=== PATIENT | female | born 1955 | race Caucasian/White ===

== ENCOUNTER 2016-05-06 10:14 | Day surgery (SDC) | payer OTHER ==
[~2016-05-06] VITALS: Ht 170.2 cm; Wt 71.4 kg
[2016-05-06] VITALS (13 sets, daily range): BP systolic 134–170; BP diastolic 66–81; PULSE 81–100; RESP 16–24; TEMP 96.9–98; O2SAT 96–100; Ht 170.2 cm; Wt 71.4 kg
[~2016-05-06 10:14] MED LIST: ASPI-1115 PO; CYCL-375 PO; HYDR-3995 PO; OMEP40CA52 PO; POLY17PO6 PO; PRAV40TA3 PO; TRAM50TA53 PO
--- OUTSIDE RECORDS SUMMARY | 2016-05-06 10:21 | XMS REPORT | Referral Summary ---
Author Author [facility], Family Medicine Organization [facility] Address Unknown Phone Unavailable Care Team Providers Care Forestry Patrolman Name Role Phone Koby Adame Primary Care Physician [phone] Encounter VC Date(s): 07/01/14 - 07/01/14 [facility], [address] [place] [id number] Discharge Diagnosis: Chronic back pain Discharge Diagnosis: Chronic pain syndrome Discharge Diagnosis: High cholesterol Discharge Disposition: 01-Home or Self Care Attending Physician: Salvatore Adame MD Admitting Physician: Salvatore Adame MD Vital Signs Most recent to 1 oldest [Reference Range]: Temperature Tympanic 36.0 degC [36.6-38.1 degC] *LOW* (07/01/14 4:15 PM) Peripheral Pulse 64 bpm Rate [60-100 bpm] (07/01/14 4:15 PM) Blood Pressure 132/88 mmHg [90-140/60-90 mmHg] (07/01/14 4:15 PM) Problem List Condition Effective Dates Status Health Status Informant Acute hepatitis C < 09/23/13 Resolved without mention of hepatic coma(Confirmed) Absence of Active menstruation(Confirm ed) Asthma(Confirmed) Active Chronic back Active pain(Confirmed) Other chronic Active pain(Confirmed) Chronic pain Active syndrome (disorder)(Confirmed ) Depression(Confirmed Active ) GERD Active (gastroesophageal reflux disease)(Confirmed) High Active cholesterol(Confirme d) Internal hemorrhoids 04/13/07 Active with other complication(Confirm ed) IBS (irritable bowel Active syndrome)(Confirmed) Migraine Active headache(Confirmed) Osteoarthritis(Confi Active rmed) Unspecified vitamin Active D deficiency(Confirmed ) Allergies, Adverse Reactions, Alerts Substance Reaction Severity Status codeine RASH Active Medications multivitamin Daily, TAKE ONE DAILY, 0 Refill(s) Start Date: 09/23/13 Status: Ordered Turner 10 mg-325 mg oral tablet 0.5-1 tabs, Oral, TID, as needed for pain, # 90 tabs, 0 Refill(s) Start Date: 11/26/14 Status: Ordered pravastatin 40 mg oral tablet 1 tabs, Oral, Daily, # 30 tabs, 6 Refill(s), Pharmacy: [facility] #[id number] , 1 tabs Oral Daily Start Date: 02/27/14 Status: Ordered PriLOSEC 40 mg oral delayed release capsule 40 mg 1 caps, Oral, Daily, # 30 caps, 6 Refill(s), Pharmacy: [facility] # [id number], 1 caps Oral Daily Start Date: 09/25/14 Status: Ordered Vitamin D3 1000 intl units oral tablet 1 tabs, Oral, Daily, # 30 tabs, 0 Refill(s) Start Date: 09/23/13 Status: Ordered Results No data available for this section Immunizations Vaccine Date Refusal Reason tetanus/diphth/pertuss (Tdap) adult/adol 02/16/05 hepatitis A-hepatitis B vaccine 11/22/11 influenza virus vaccine, inactivated1 12/03/13 influenza virus vaccine, live 02/08/13 influenza virus vaccine, live 11/24/11 pneumococcal 23-polyvalent vaccine 11/24/11 pneumococcal 23-polyvalent vaccine 12/04/03 pneumococcal 23-polyvalent vaccine 12/12/01 pneumococcal 23-polyvalent vaccine 12/17/99 tetanus-diphth toxoids (Td) adult/adol 09/28/95 1Result Comment: [12/03/2013] SEE SCANNED NOTE Procedures Procedure Date Related Diagnosis Body Site Colonoscopic polypectomy1 02/24/14 Esophagogastroduodenoscopy and biopsy2, 3 02/24/14 Removal of breast implants 07/23/07 Colonoscopy 04/13/07 BCC REMOVAL-NOSE 2002 Breast augmentation 1996 1Tubular adenoma 1, hyperplastic polyp 1 first-degree relative with colon cancer, repeat in 5 years 2Biopsies negative for Barfield's. His GERD refractory to medication return to clinic for further evaluation. 38-10 cm hiatal hernia, irregular GE junction. Social History Social History Type Response Smoking Status Former smoker; Type: Cigarettes1 1Quit spring 2013 Assessment and Plan Extracted from: Title: Chronic pain, cholesterol Author: Salvatore Adame MD Date: Assessment/Plan Chronic back pain Chronic pain syndrome High cholesterol Orders: Chronic pain related to chronic back pain. Overall doing well on current regimen and we will continue this. Follow-up again in 3 months to reevaluate back pain. We discussed smoking cessation and she will be starting Chantix soon. Hyperlipidemia under good control, continue pravastatin.
--- OUTSIDE RECORDS SUMMARY | 2016-05-06 10:21 | XMS REPORT | Referral Summary ---
Author Author [facility], Family Medicine Organization [facility] Address Unknown Phone Unavailable Care Team Providers Care Optical Store Manager Name Role Phone Koby Adame Primary Care Physician [phone] Encounter VC Date(s): 12/30/14 - 12/30/14 [facility], [address] [place] [id number] Discharge Diagnosis: Chronic pain syndrome Discharge Disposition: 01-Home or Self Care Attending Physician: Salvatore Adame MD Admitting Physician: Salvatore Adame MD Vital Signs Most recent to 1 oldest [Reference Range]: Peripheral Pulse 78 bpm Rate [60-100 bpm] (12/30/14 4:33 PM) Blood Pressure 138/88 mmHg [90-140/60-90 mmHg] (12/30/14 4:33 PM) Problem List Condition Effective Dates Status [...] Reaction Severity Status codeine RASH Active Medications cyclobenzaprine 10 mg oral tablet See Instructions, as needed for spasm, take 1-2 tabs at nighttime, # 30 tabs, 0 Refill(s), [id number], take 1-2 tabs at nighttime,PRN: as needed for spasm Start Date: 12/25/14 Stop Date: 12/25/15 Status: Ordered multivitamin Daily, TAKE ONE DAILY, 0 Refill(s) Start Date: 09/23/13 Status: Ordered [place] 10 mg-325 mg oral tablet 0.5-1 tabs, Oral, TID, as needed for pain, # 90 tabs, 0 Refill(s) Start Date: 12/25/14 Status: Ordered pravastatin 40 mg oral tablet See Instructions, TAKE ONE TABLET BY MOUTH DAILY, # 30 tabs, 5 Refill(s), eRx: [facility] #[id number], TAKE ONE TABLET BY MOUTH DAILY Start Date: 12/22/14 Status: Ordered PriLOSEC 40 mg oral delayed release capsule 40 mg 1 caps, Oral, Daily, # 30 caps, 6 Refill(s), Pharmacy: [facility] # [id number], 1 caps Oral Daily Start Date: 09/25/14 Status: Ordered Vitamin D3 1000 intl units oral tablet 1 tabs, Oral, Daily, # 30 tabs, 0 Refill(s) Start Date: 09/23/13 Status: Ordered Results No data available for this section Immunizations Vaccine Date Refusal Reason tetanus/diphth/pertuss (Tdap) adult/adol 02/16/05 hepatitis A-hepatitis B vaccine 11/22/11 influenza virus vaccine, inactivated 12/30/14 influenza virus vaccine, inactivated1 12/03/13 influenza virus [...] 2013 Assessment and Plan Extracted from: Title: Ambulatory Patient Education Author: Salvatore Adame MD Date: Family Medicine Chronic Pain Chronic pain can be defined as pain that is off and on and lasts for 36 months or longer. Many things cause chronic pain, which can make it difficult to make a diagnosis. There are many treatment options available for chronic pain. However, finding a treatment that works well for you may require trying various approaches until the right one is found. Many people benefit from a combination of two or more types of treatment to control their pain. SYMPTOMS Chronic pain can occur anywhere in the body and can range from mild to very severe. Some types of chronic pain include: Headache. Low back pain. Cancer pain. Arthritis pain. Neurogenic pain. This is pain resulting from damage to nerves. People with chronic pain may also have other symptoms such as: Depression. Anger. Insomnia. Anxiety. DIAGNOSIS Your health care provider will help diagnose your condition over time. In many cases, the initial focus will be on excluding possible conditions that could be causing the pain. Depending on your symptoms, your health care provider may order tests to diagnose your condition. Some of these tests may include: Blood tests. CT scan. MRI. X-rays. Ultrasounds. Nerve conduction studies. You may need to see a specialist. TREATMENT Finding treatment that works well may take time. You may be referred to a pain specialist. He or she may prescribe medicine or therapies, such as: Mindful meditation or yoga. Shots (injections) of numbing or pain-relieving medicines into the spine or area of pain. Local electrical stimulation. Acupuncture. Massage therapy. Aroma, color, light, or sound therapy. Biofeedback. Working with a physical therapist to keep from getting stiff. Regular, gentle exercise. Cognitive or behavioral therapy. Group support. Sometimes, surgery may be recommended. HOME CARE INSTRUCTIONS Take all medicines as directed by your health care provider. Lessen stress in your life by relaxing and doing things such as listening to calming music. Exercise or be active as directed by your health care provider. Eat a healthy diet and include things such as vegetables, fruits, fish, and lean meats in your diet. Keep all follow-up appointments with your health care provider. Attend a support group with others suffering from chronic pain. SEEK MEDICAL CARE IF: Your pain gets worse. You develop a new pain that was not there before. You cannot tolerate medicines given to you by your health care provider. You have new symptoms since your last visit with your health care provider. SEEK IMMEDIATE MEDICAL CARE IF: You feel weak. You have decreased sensation or numbness. You lose control of bowel or bladder function. Your pain suddenly gets much worse. You develop shaking. You develop chills. You develop confusion. You develop chest pain. You develop shortness of breath. MAKE SURE YOU: Understand these instructions. Will watch your condition. Will get help right away if you are not doing well or get worse. Document Released: 10/22/2002 Document Revised: 10/02/2013 Document Reviewed: [facility] Patient Information 2015 [employer]. This information is not intended to replace advice given to you by your health care provider. Make sure you discuss any questions you have with your health care provider. No follow up information was provided. Extracted from: Title: Office Visit Note Author: Salvatore Adame MD Date: 12/30/14 Assessment/Plan Chronic pain syndrome Need for influenza vaccination Continue present care. Follow-up or preoperative visit as already planned, otherwise when necessary.
--- OUTSIDE RECORDS SUMMARY | 2016-05-06 10:21 | XMS REPORT | Referral Summary ---
Author Organization Unknown Address Unknown Phone Unavailable Care Team Providers Care Wind Turbine Performance Engineer Name Role Phone KvngkingKoby Primary Care Physician [phone] Encounter VC Date(s): 05/28/14 - 05/28/14 [facility], [place], Family [address] [place] [id number] Discharge Diagnosis: Back muscle spasm Discharge Disposition: Home or Self Care Attending Physician: Marta Albarado APRN Admitting Physician: Marta Albarado APRN Vital Signs Most recent to 1 oldest [Reference Range]: Temperature Tympanic 36.3 degC [36.6-38.1 degC] *LOW* (05/28/14 10:17 AM) Peripheral Pulse 78 bpm Rate [60-100 bpm] (05/28/14 10:17 AM) Blood Pressure 120/76 mmHg [90-140/60-90 mmHg] (05/28/14 10:17 AM) Problem List Condition Effective Dates Status Health [...] Active Medications cyclobenzaprine 10 mg oral tablet 1 tabs, Oral, TID, as needed for spasm, # 30 tabs, 0 Refill(s), Pharmacy: [facility] #[id number], 1 tabs Oral TID,PRN:as needed for spasm Start Date: 04/16/14 Stop Date: 04/17/15 Status: Ordered Detrol LA 4 mg oral capsule, extended release 1 caps, Oral, Daily, # 30 caps, 0 Refill(s), Pharmacy: [facility] #[id number] , 1 caps Oral Daily Start Date: 01/02/14 Status: Ordered diflunisal 500 mg oral tablet 1 tabs, Oral, q8hr, # 15 tabs, 0 Refill(s), Pharmacy: [facility] #[id number], 1 tabs Oral q8hr Start Date: 05/28/14 Status: Ordered multivitamin Daily, TAKE ONE DAILY, 0 Refill(s) Special Instructions: TAKE ONE DAILY Start Date: 09/23/13 Status: Ordered [place] 10 mg-325 mg oral tablet 0.5-1 tabs, Oral, TID, as needed for pain, S DILLONS, # 105 tabs, 0 Refill(s) Special Instructions: S DILLONS Start Date: 05/26/14 Status: Ordered pravastatin 40 mg oral tablet 1 tabs, Oral, Daily, # 30 tabs, 6 Refill(s), Pharmacy: [facility] #[id number] , 1 tabs Oral Daily Start Date: 02/27/14 Status: Ordered PriLOSEC 40 mg oral delayed release capsule 1 caps, Oral, Daily, # 30 caps, 6 Refill(s), Pharmacy: [facility] #[id number] , 1 caps Oral Daily Start Date: 02/27/14 Status: Ordered Vitamin D3 1000 intl units oral tablet 1 tabs, Oral, Daily, # 30 tabs, 0 Refill(s) Start Date: 09/23/13 Status: Ordered Results No data available for this section Immunizations Vaccine Date Refusal Reason tetanus/diphth/pertuss (Tdap) adult/adol 02/16/05 hepatitis A-hepatitis B vaccine 11/22/11 influenza virus vaccine, inactivated1 12/03/13 influenza virus vaccine, live 02/08/13 influenza virus vaccine, live 11/24/11 pneumococcal 13-valent conjugate vaccine 11/24/11 pneumococcal 23-polyvalent vaccine 12/04/03 pneumococcal [...] Cigarettes1 1Quit spring 2013 Assessment and Plan No data available for this section
--- OUTSIDE RECORDS SUMMARY | 2016-05-06 10:21 | XMS REPORT | Continuity of Care Document ---
Author Author [facility] Organization [facility] Address Unknown Phone Unavailable Allergies Medications Problems Procedures Results Encounters ACCT No. Visit Date/Time Discharge Status Pt. Type Provider Facility Loc./Unit Complaint [id number] 04/11/2013 16:26:00 04/11/2013 23 :59:59 CLS Outpatient [id number] 03/26/2013 15:47:00 03/26/2013 23 :59:59 CLS Outpatient [id number] 03/14/2013 11:23:00 03/14/2013 23 :59:59 CLS Outpatient [id number] 03/07/2013 08:19:00 03/07/2013 23 :59:59 CLS Outpatient [id number] 02/19/2013 12:45:00 02/19/2013 23 :59:59 CLS Outpatient
--- OUTSIDE RECORDS SUMMARY | 2016-05-06 10:21 | XMS REPORT | Continuity of Care Document ---
Author Author Salvatore Adame MD, V Organization Ambulatory Address [address] [place] [address] Phone Care Team Providers Care Delivery Truck Driver Name Role Phone Salvatore Adame PP Unavailable Payers Payer name Insurance type Covered alliance party ID Authorization(s) Unknown Problems Condition Effective Dates (start - stop) Clinical Status Bronchitis, Acute - *Acute ACUTE BRONCHOSPASM - *Acute Tobacco Abuse - *Chronic Elevated blood pressure reading without diagnosis of hypertension - *Acute Chronic hepatitis c without mention of hepatic coma - *Chronic Influenza Vaccine - Pneumonia Vaccine - Chronic hepatitis c without mention of hepatic coma - *Chronic Nausea And Vomiting - Improved Constipation - New onset GERD - *Controlled Unspecified viral hepatitis C without hepatic coma - *Resolved CHRONIC PAIN SYNDROME - *Chronic Backache - *Chronic Knee pain, right - *Chronic Tobacco Abuse - *Chronic CHRONIC PAIN SYNDROME - *Chronic CHRONIC PAIN SYNDROME - *Chronic CHRONIC PAIN SYNDROME - Chronic Chronic hepatitis c without mention of hepatic coma - *Chronic Tobacco abuse - *Chronic Hepatitis C - *Chronic Backache - *Chronic CHRONIC PAIN SYNDROME - *Chronic GERD - *Controlled Hypercholesterolemia - *Stable Depression - *Stable Common migraine without mention of intractable migraine - * Controlled Acute hepatitis C without mention of hepatic coma - *Chronic Fatigue - Moderate Nausea and vomiting - Persistent Noninfectious Gastroenteritis - *Acute CHRONIC PAIN SYNDROME - *Chronic Osteoarthrosis, unspecified whether generalized or localized, involving other specified sites - *Chronic Tobacco Abuse - *Chronic HPT C ACUTE WO HPAT COMA - VITAMIN D DEFICIENCY NOS - PURE HYPERCHOLESTEROLEM - 311 - DEPRESSIVE DISORDER NEC - CHRONIC PAIN NEC - MGRN WO AURA WO NTRC MGR - INT HEMRRHOID W COMP NEC - ASTHMA NOS - ESOPHAGEAL REFLUX - IRRITABLE BOWEL SYNDROME - ABSENCE OF MENSTRUATION - OSTEOARTHRO NOS-OTH SITE - LUMB[place]O - Tobacco Abuse - *Chronic Upper Respiratory Infection, Acute - *Acute Bronchitis, Acute - *Acute ACUTE BRONCHOSPASM - *Acute Chronic hepatitis c without mention of hepatic coma - *Chronic Nausea and vomiting - Episodic Injection site irritation - Mild Weakness generalized - *Acute Anemia - *Acute Hepatitis C - *Acute Chronic hepatitis c without mention of hepatic coma - *Chronic Thrombocytopenia - Mild Nausea and vomiting - Improved Chronic hepatitis c without mention of hepatic coma - *Chronic Nausea and vomiting - Episodic Hep C w/o coma, chronic - *Chronic Hep C w/o coma, chronic - *Chronic Need for prophylactic vaccination and inoculation against viralhepatitis - Chronic hepatitis c without mention of hepatic coma - *Resolved Elevated liver enzymes - Mild Family History Family Member Diagnosis Age At Onset Status Brother (Unknown) Cancer - Hodgkin's Disease Yes Brother (Unknown) Cancer - lymphoma Yes Mother (Unknown) Hypertension Yes Maternal grandmother (Unknown) Cancer - colon Yes Father (Unknown) Asthma Yes Brother (Alive) Muscular dystrophy Yes Mother (Unknown) Cancer - colon Yes Mother (Unknown) Thyroid disease Yes Father (Unknown) Heart disease Yes Father (Unknown) COPD Yes Brother (Unknown) CAD Yes Social History Social History Element Description Quantity Unknown Allergies, Adverse Reactions, Alerts Substance Reaction Severity Status CODEINE RASH Unknown Medications Medication Instructions Dosage Effective Dates (start - stop) Status Medrol (Rohith) 4 mg tablets in a dose pack take by Oral route as directed by dosepazhouwu. 0 - No Longer Active amoxicillin 875 mg tablet take 1 tablet (875MG) by oral route every 12 hours 875 MG - No Longer Active albuterol sulfate HFA 90 mcg/actuation aerosol inhaler inhale 2 puff by inhalation route every 4 - 6 hours as needed 0 - No Longer Active Vitamin D3 1,000 unit tablet take 1 by Oral route every day 0 - Active multivitamin tablet take one daily - Active omeprazole 20 mg capsule,delayed release Take 1 capsule by mouth every day. - Active cyclobenzaprine 10 mg tablet 1 TABLET BY MOUTH THREE TIMES DAILY NEEDED - Active Metamucil 0.52 gram capsule take 2 BY MOUTH BID - Active Chantix Starting Month Rohith 0.5 mg (11)-1 mg (42) tablets in dose pack use as directed - Active Chantix Continuing Month Box 1 mg tablet take 1 tablet (1MG) by oral route 2 times every day with a glass of water after meals 1 MG - Active Brooten 10 mg-325 mg tablet take 1/2 to 1 tablet as needed for pain up to max of three tablets per day. May cause drowsiness. - Active morphine ER 30 mg tablet,extended release take 1 tablet (30MG) by oral route every 12 hours 30 MG - Active Immunizations Vaccine Date Status Comments Flu (split) (3 yrs or older) completed Pneumo (2 yrs or older)(PPV) completed Flu (split) (3 yrs or older) completed Twinrix completed Td (adult) completed - Completed reason: source unspecified pneumo (2 yrs or older) (PPV23) completed - Completed reason: source unspecified Tdap (Adacel ) completed - Completed reason: source unspecified pneumo (2 yrs or older) (PPV23) completed - Completed reason: source unspecified pneumo (2 yrs or older) (PPV23) completed - Completed reason: source unspecified Results Test Name Date and Time Measure Units Reference Range Abnormal Flag Comments Unknown Vital Signs Date / Time: Height Weight Pulse Rate Blood Pressure Temperature /12:50:00 67.00 in 169.00 lbs 110 /min 120/88 mm[Hg] 98.2 F Procedures Procedure Date Unknown Encounters Encounter Location Date Patient Visit [facility] Patient Visit [facility] Patient Visit [facility] Patient Visit [facility] Patient Visit [facility] Patient Visit [facility] Patient Visit [facility] Patient Visit [facility] Patient Visit [facility] Patient Visit [facility] Patient Visit [facility] Patient Visit [facility] Patient Visit [facility] Patient Visit [facility] Patient Visit [facility] Patient Visit [facility] Patient [facility] Patient [facility] Patient [facility] Patient [facility] Patient Visit [facility] Patient Visit [facility] Patient Visit [facility] Patient Visit [facility] Advance Directives Directive Effective Date Unknown
--- OUTSIDE RECORDS SUMMARY | 2016-05-06 10:21 | XMS REPORT | Continuity of Care Document ---
Author Author Noel Swain MA, VC Ambulatory Address Unknown Phone Unavailable Care Team Providers Care Back Sizer Name Role Phone Salvatore Adame PP Unavailable Payers Payer name Insurance type Covered constitution party ID Authorization(s) Unknown Problems Condition Effective Dates (start - stop) Clinical Status CHRONIC PAIN SYNDROME - *Chronic CHRONIC PAIN SYNDROME - Chronic Elevated blood pressure reading without diagnosis of [...] - *Chronic Knee pain, right - *Chronic CHRONIC PAIN SYNDROME - *Chronic CHRONIC PAIN SYNDROME - Chronic Constipation, unspecified - *Chronic Chronic hepatitis c without mention of hepatic [...] - [place] - Tobacco Abuse - *Chronic CHRONIC PAIN SYNDROME - *Chronic Tobacco Abuse - *Chronic Upper Respiratory Infection, [...] - *Resolved Elevated liver enzymes - Mild Bronchitis, Acute - *Acute ACUTE BRONCHOSPASM - *Acute Tobacco Abuse - *Chronic Family History Family Member Diagnosis Age At [...] Dosage Effective Dates (start - stop) Status morphine ER 30 mg tablet,extended release take 1 tablet (30MG) by oral route every 12 hours 30 MG - No Longer Active Vitamin D3 1,000 unit tablet take 1 by Oral route every day 0 - Active multivitamin tablet take one daily - Active omeprazole 20 mg capsule,delayed release Take 1 capsule by mouth every day. - Active Metamucil 0.52 gram capsule take 2 BY MOUTH BID - Active morphine ER 30 mg tablet,extended release take 1 tablet (30MG) by oral route every 12 hours 30 MG - Active cyclobenzaprine 10 mg tablet 1 TABLET BY MOUTH THREE TIMES DAILY NEEDED - Active [place] 10 mg-325 mg tablet take 1/2 to 1 tablet as needed for pain up to max of three tablets per day. May cause drowsiness. - Active Immunizations Vaccine Date Status Comments Flu (split) (3 yrs or older) completed Pneumo (2 yrs or older)(PPV) completed Flu (split) (3 yrs or older) completed Twinrix completed Td (adult) completed - Completed reason: source unspecified Tdap [...] Height Weight Pulse Rate Blood Pressure Temperature /15:52:00 67.00 in 176.00 lbs 72 /min 112/70 mm[Hg] 97.6 F Procedures Procedure Date Unknown Encounters Encounter Location Date Patient Visit [facility] Patient Visit [facility] Patient Visit [facility] Patient Visit [facility] Patient Visit [facility] Patient Visit [facility] Patient Visit [facility] Patient [facility] Patient [facility] Patient [facility] Patient Visit [facility] Patient Visit [facility] Patient Visit [facility] Patient Visit [facility] Patient Visit [facility] Patient [facility] Patient [facility] Patient [facility] Patient [facility] Patient Visit [facility] Patient Visit [facility] Patient Visit [facility] Patient Visit [facility] Patient Visit [facility] Patient Visit [facility] Advance Directives Directive Effective Date Unknown
--- OUTSIDE RECORDS SUMMARY | 2016-05-06 10:21 | XMS REPORT | Referral Summary ---
Author Author [facility], Family Medicine Organization [facility] Address Unknown Phone Unavailable Care Team Providers Care Brokerage Purchase And Sale Clerk Name Role Phone Koby Adame Primary Care Physician [phone] Encounter [facility] [id number] Date(s): 01/26/15 - 01/26/15 [facility], [address] [place] [address] Discharge Diagnosis: Encounter for chronic pain management Discharge Diagnosis: Osteoarthritis of right knee Discharge Diagnosis: GERD (gastroesophageal reflux disease) Discharge Diagnosis: Preoperative examination Discharge Diagnosis: Mild intermittent asthma Discharge Diagnosis: History of smoking Discharge Disposition: 01-Home or Self Care Attending Physician: Salvatore Adame MD Admitting Physician: Salvatore Adame MD Vital Signs Most recent to 1 oldest [Reference Range]: Peripheral Pulse 80 bpm Rate [60-100 bpm] (01/26/15 3:32 PM) Blood Pressure 140/90 mmHg [90-140/60-90 mmHg] (01/26/15 3:32 PM) Problem List Condition Effective Dates Status [...] nighttime, # 30 tabs, 0 Refill(s), Pharmacy: [facility] #[id number], take 1-2 tabs at nighttime,PRN: as needed for spasm Start Date: 12/25/14 Stop Date: 12/25/15 Status: Ordered multivitamin Daily, TAKE ONE DAILY, 0 Refill(s) Start Date: 09/23/13 Status: Ordered Gary 10 mg-325 mg oral tablet 0.5-1 tabs, Oral, TID, as needed for pain, # 90 tabs, 0 Refill(s) Start Date: 01/26/15 Status: Ordered pravastatin 40 mg oral tablet See Instructions, TAKE ONE TABLET BY MOUTH DAILY, # 30 tabs, 5 Refill(s), eRx: [facility] #[id number], TAKE ONE TABLET BY MOUTH DAILY Start Date: 12/22/14 Status: Ordered PriLOSEC 40 mg oral delayed release capsule 40 mg 1 caps, Oral, Daily, # 30 caps, 6 Refill(s), Pharmacy: [facility] # [id number], 1 caps Oral Daily Start Date: 09/25/14 [...] breast implants 07/23/07 Colonoscopy 04/13/07 BCC REMOVAL-NOSE 2003 Breast augmentation 1996 1Tubular adenoma 1, hyperplastic [...] Author: Salvatore Adame MD Date: Family Medicine Knee Rehabilitation, Guidelines Following Surgery Results after knee surgery are often greatly improved when you follow the exercise, range of motion and muscle strengthening exercises prescribed by your doctor. Safety measures are also important to protect the knee from further injury. Any time any of these exercises cause you to have increased pain or swelling in your knee joint, decrease the amount until you are comfortable again and slowly increase them. If you have problems or questions, call your caregiver or physical therapist for advice. HOME CARE INSTRUCTIONS Remove items at home which could result in a fall. This includes throw rugs or furniture in walking pathways. Continue medications as instructed. You may shower or take tub baths when your sofía or stitches are removed or as instructed. Walk using crutches or walker as instructed. Put weight on your legs and walk as much as is comfortable. You may resume a sexual relationship in one month or when given the OK by your doctor. Return to work as instructed by your doctor. Do not drive a car for 6 weeks or as instructed. Wear elastic stockings until instructed not to. Make sure you keep all of your appointments after your operation with all of your doctors and caregivers. RANGE OF MOTION AND STRENGTHENING EXERCISES Rehabilitation of the knee is important following a knee injury or an operation. After just a few days of immobilization, the muscles of the thigh which control the knee become weakened and shrink (atrophy). Knee exercises are designed to build up the tone and strength of the thigh muscles and to improve knee motion. Often times heat used for twenty to thirty minutes before working out will loosen up your tissues and help with improving the range of motion. These exercises can be done on a training (exercise) mat, on the floor, on a table or on a bed. Use what ever works the best and is most comfortable for you Knee exercises include: Leg Lifts - While your knee is still immobilized in a splint or cast, you can do straight leg raises. Lift the leg to 60 degrees, hold for 3 sec, and slowly lower the leg. Repeat 10-20 times 2-3 times daily. Perform this exercise against resistance later as your knee gets better. Quad and Hamstring Sets - Tighten up the muscle on the front of the thigh ( Quad) and hold for 5-10 sec. Repeat this 10-20 times hourly. Hamstring sets are done by pushing the foot backward against an object and holding for 5-10 sec. Repeat as with quad sets. Resistance and Weight exercises - After your knee no longer needs to be immobilized, progressive motion, resistance, and weight lifting exercises should be performed. This is best done under the guidance of a physical therapist. You may safely start with wall squats; with your feet 10 inches from a wall, place your back flat against the wall and lower your trunk about 6 inches until you feel work in your thighs. Hold 20-40 seconds, then rise slowly. Do 3-6 repetitions 2-3 times daily. Endurance Training - Bicycle and walking are helpful in restoring strength and endurance to the leg. A rehabilitation program following serious knee injuries can speed recovery and prevent re-injury in the future due to weakened muscles. Contact your doctor or a physical therapist for more information on knee rehabilitation. MAKE SURE YOU: Understand these instructions. Will watch your condition. Will get help right away if you are not doing well or get worse. Document Released: 01/30/2006 Document Revised: 04/23/2012 Document Reviewed: [facility] Patient Information 2015 [facility], [facility]. This information is not intended to replace advice given to you by your health care provider. Make sure you discuss any questions you have with your health care provider. No follow up information was provided. Extracted from: Title: Office Visit Note Author: Salvatore Adame MD Date: 01/26/15 Assessment/Plan Encounter for chronic pain management GERD (gastroesophageal reflux disease) Mild intermittent asthma Osteoarthritis of right knee Preoperative examination Orders: HYDROcodone-acetaminophen, 0.5-1 tabs, Oral, TID, as needed for pain, # 90 tabs, 0 Refill(s) Based on exam she is appropriate/cleared for surgery. EKG obtained today was okay. We have labs pending to be done in about a week. Refill provided for Gary which should last her up through surgery. I congratulated her on stop smoking. We will order a cotinine test to be done on about February 25.
--- OUTSIDE RECORDS SUMMARY | 2016-05-06 10:21 | XMS REPORT | Referral Summary ---
Author Author [facility], Family Medicine Organization [facility] Address Unknown Phone Unavailable Care Team Providers Care Business Administrator Name Role Phone Koby Adame Primary Care Physician [phone] Encounter [facility] Date(s): 07/01/14 - 07/01/14 [facility], [address] [place] [address] Discharge Diagnosis: Chronic back pain Discharge Diagnosis: [...] 0 Refill(s) Start Date: 09/23/13 Status: Ordered [place] 10 mg-325 mg oral tablet 0.5-1 tabs, Oral, TID, as needed for pain, # 90 tabs, 0 Refill(s) Start Date: 11/26/14 Status: Ordered pravastatin 40 mg oral tablet 1 tabs, Oral, Daily, # 30 tabs, 6 Refill(s), Pharmacy: [facility] #[id number] , 1 tabs Oral Daily Start Date: 02/27/14 Status: Ordered PriLOSEC 40 mg oral delayed release capsule 40 mg 1 caps, Oral, Daily, # 30 caps, 6 Refill(s), Pharmacy: [facility] # [id number], 1 caps Oral Daily Start Date: 09/25/14 [...] Extracted from: Title: Chronic pain, cholesterol Author: aSlvatore Adame MD Date: Assessment/Plan Chronic back pain [...]
--- OUTSIDE RECORDS SUMMARY | 2016-05-06 10:21 | XMS REPORT | Referral Summary ---
Author Author [facility], Family Medicine Organization [facility] Address Unknown Phone Unavailable Care Team Providers Care Euclid Operator Name Role Phone Koby Adame Primary Care Physician [phone] Encounter [facility] Date(s): 07/01/14 - 07/01/14 [facility] [address] [place] [address] Discharge Diagnosis: Chronic back pain [...] nighttime, # 30 tabs, 0 Refill(s), Pharmacy: [facility] #[id number], take 1-2 tabs at nighttime,PRN: as needed for spasm Start Date: 12/25/14 Stop Date: 12/25/15 Status: Ordered multivitamin Daily, TAKE ONE DAILY, 0 Refill(s) Start Date: 09/23/13 Status: Ordered [place] 10 mg-325 mg oral tablet 0.5-1 tabs, Oral, TID, as needed for pain, # 90 tabs, 0 Refill(s) Start Date: 12/25/14 Status: Ordered pravastatin 40 mg oral tablet See Instructions, TAKE ONE TABLET BY MOUTH DAILY, # 30 tabs, 5 Refill(s), eRx: [facility] #[id number], TAKE ONE TABLET BY MOUTH DAILY Start Date: 12/22/14 Status: Ordered PriLOSEC 40 mg oral delayed release capsule 40 mg 1 caps, Oral, Daily, # 30 caps, 6 Refill(s), Pharmacy: [facility] # [id number], 1 caps Oral Daily Start Date: 09/25/14 [...] 02/24/14 Removal of breast implants 07/23/07 Colonoscopy 2/29/08 BCC REMOVAL-NOSE 2003 Breast augmentation 1997 1Tubular adenoma 1, hyperplastic polyp 1 first-degree [...]
--- OUTSIDE RECORDS SUMMARY | 2016-05-06 10:21 | XMS REPORT | Continuity of Care Document ---
Author Author [facility] Organization [facility] Address Unknown Phone Unavailable Support Name Relationship Address Phone NIKA DE DIOS MD Caregiver [address] [place] [address] [place] [address] MILAGRO CLINE FACS, MD Caregiver [address] [place] [address] [place] [phone] LEXI TROY Next Of Kin [address] [place] [id number] Insurance Providers Payer Name Policy Number Subscriber Name Relationship [facility] [id number] Christianne Troy 19 Self Advance Directives Directive Response Recorded Date/Time Ordered Resuscitation Status Full Code 02/21/14 6:01pm Resuscitation Documents on File No 02/21/14 12:27pm Problems No known problems or medical conditions. Medications Medication Dose Route Sig Days/Qty Instructions Order Date Discontinued Date Status Hydrocodone/Ibuprofen 1 Tab PO NEEDED 02/21/14 Active Omeprazole 1 Cap PO BEDTIME 02/21/14 Active Multivit,Ther Iron,Ca,FA & Min 1 Tab PO DAILY 02/21/14 Active Pravastatin Sodium 40 Mg PO BEDTIME Take 1 tablet, by mouth, daily at bedtime. 02/21/14 Active Cholecalciferol (Vitamin D3) 02/21/14 Active Social History Social History Problem Response Recorded Date/Time Chewing Tobacco Status No 02/21/2014 12:15pm Hx Substance Use No 02/21/2014 12:15pm Hx Alcohol Use No 02/21/2014 12:15pm Has the pt used tobacco in the last 12 months Yes 02/21/2014 12:15pm Query Response Start Date Stop Date Smoking Status Current every day smoker Hospital Discharge Instructions No hospital discharge instructions. Plan of Care No plan of care. Functional Status No functional status results. Allergies, Adverse Reactions, Alerts Allergen Type Severity Reaction Status Last Updated Codeine Allergy Unknown HIVES Active 02/21/14 Immunizations Name Given Type Hx Influenza Vaccination Y fall Historical Hx Pneumococcal Vaccination Y UNSURE OF DATE Historical Hx Influenza Vaccination Y fall Historical Vital Signs Acute Vital Signs Vital Response Date/Time Temperature (Fahrenheit) 98.6 deg F (96.8 - 99.1) Temperature (Calculated Celsius) 37.89520 degrees C (36.0 - 37.3) Temperature Source Axillary Pulse Rate (adult) 70 bpm (60 - 100) Respiratory Rate 16 breaths/min (10 - 20) O2 Sat by Pulse Oximetry 98 % (90 - 100) Oxygen Delivery Method Room Air Blood Pressure 133/78 mm Hg Blood Pressure Source Automatic Cuff Height 5 ft 7 in Weight 166 lb Body Mass Index 26.0 kg/m^2 Results No known relevant diagnostic tests, laboratory data and/or discharge summary. Procedures Procedure Status Date Provider(s) Esophagogastroduodenoscopy (EGD) with closed biopsy completed 02/24/14 MILAGRO CLINE MD, FACS, CWS Colonoscopy with polypectomy and biopsy completed 02/24/14 MILAGRO CLINE MD, FACS, CWS
--- OUTSIDE RECORDS SUMMARY | 2016-05-06 10:22 | XMS REPORT | Referral Summary ---
Author Author [facility], Family Medicine Organization [facility] Address Unknown Phone Unavailable Care Team Providers Care Spiral Gear Generator Name Role Phone Koby Adame Primary Care Physician [phone] Encounter [facility] Date(s): 07/01/14 - 07/01/14 [facility], [address] [place] [address] Discharge Diagnosis: Chronic back pain Discharge [...] 0 Refill(s) Start Date: 09/23/13 Status: Ordered [place] 10 mg-325 mg oral tablet 0.5-1 tabs, Oral, TID, as needed for pain, # 90 tabs, 0 Refill(s) Start Date: 11/26/14 Status: Ordered pravastatin 40 mg oral tablet 1 tabs, Oral, Daily, # 30 tabs, 6 Refill(s), Pharmacy: [facility] #[id number] , 1 tabs Oral Daily Start Date: 02/27/14 Status: Ordered PriLOSEC 40 mg oral delayed release capsule 40 mg 1 caps, Oral, Daily, # 30 caps, 6 Refill(s), Pharmacy: [facility] # [id number], 1 caps Oral Daily Start Date: 09/25/14 [...]
--- OUTSIDE RECORDS SUMMARY | 2016-05-06 10:22 | XMS REPORT | Referral Summary ---
Author Author [facility], Family Medicine Organization [facility] Address Unknown Phone Unavailable Care Team Providers Care Reading Professor Name Role Phone Koby Adame Primary Care Physician [phone] Encounter [facility] Date(s): 03/30/15 - 03/30/15 [facility], [address] [place] [address] Discharge Diagnosis: Chronic pain syndrome Discharge Diagnosis: Elevated blood pressure Discharge Diagnosis: Tobacco abuse Discharge Disposition: 01-Home or Self Care Attending Physician: Salvatore Adame MD Admitting Physician: Salvatore Adame MD Vital Signs Most recent to 1 oldest [Reference Range]: Temperature Tympanic 37.6 degC [36.6-38.1 degC] (03/30/15 4:45 PM) Peripheral Pulse 86 bpm Rate [60-100 bpm] (03/30/15 4:45 PM) Blood Pressure 147/105 mmHg [90-140/60-90 mmHg] *HI* (03/30/15 4:45 PM) Problem List Condition Effective Dates Status [...] spasm, take 1-2 tabs at nighttime, # 60 tabs, 0 Refill(s), Pharmacy: [facility] #[id number], take 1-2 tabs at nighttime,PRN: as needed for spasm Start Date: 03/30/15 Stop Date: 04/28/15 Status: Ordered multivitamin Daily, TAKE ONE DAILY, 0 Refill(s) Start Date: 09/23/13 Status: Ordered [place] 10 mg-325 mg oral tablet See Instructions, as needed for pain, 0.5-1 tablet Q 4 hours to maximum of 5 tablets per 24 hours., # 105 tabs, 0 Refill(s) Start Date: 03/30/15 Status: Ordered pravastatin 40 mg oral tablet See Instructions, TAKE ONE TABLET BY MOUTH DAILY, # 30 tabs, 5 Refill(s), eRx: [facility] #[id number], TAKE ONE TABLET BY MOUTH DAILY Start Date: 12/22/14 Status: Ordered PriLOSEC 40 mg oral delayed release capsule 40 mg 1 caps, Oral, Daily, # 30 caps, 6 Refill(s), Pharmacy: [facility] # [id number], 1 caps Oral Daily Start Date: 09/25/14 [...] Assessment and Plan Extracted from: Title: Chronic pain Author: Salvatore Adame MD Date: 03/30/15 Assessment/Plan Chronic pain syndrome Elevated blood pressure Tobacco abuse Orders: HYDROcodone-acetaminophen, See Instructions, as needed for pain, 0.5- 1 tablet Q 4 hours to maximum of 5 tablets per 24 hours., # 105 tabs, 0 Refill(s ) In the context of previously acceptable blood pressures, today's reading is interpreted as being high due to pain. I did ask her to monitor blood pressures 2-3 times per week and she is to give me an update after 2-3 weeks about how the blood pressures are doing. Chronic pain with acute exacerbation related to the surgery. I approved a total of 5 Adams 10/325 tablets per day . Will approve 105 tablets enough to last in next 3 weeks. 3 weeks she is to give me an update about pain control and blood pressure. Our intention is to give her enough to make it through this acute pain face and then taper down. She was given a prescription eye Dr. Shrestha for Lortab which she reports that she did not fill. She agreed to strep that prescription. Phone follow-up in 3 weeks and if all goes well follow-up with me again in 3 months for chronic pain management. We will send a copy of the dictation to Dr. Shrestha. Addendum Identified that she had resumed smoking and strongly encouraged her to quit entirely. by Salvatore Adame MD on March 30, 2015 17:26:17 NOTCHED BLADE LOADER
--- OUTSIDE RECORDS SUMMARY | 2016-05-06 10:22 | XMS REPORT | Continuity of Care Document ---
Author Author Noel Swain MA, [facility] Address Unknown Phone Unavailable Care Team Providers Care Digital Strategy Director Name Role Phone Salvatore Adame PP Unavailable Payers Payer name Insurance type Covered alliance party ID Authorization(s) Unknown Problems Condition Effective Dates (start - stop) Clinical Status CHRONIC PAIN SYNDROME - *Chronic CHRONIC PAIN SYNDROME - Chronic Constipation, unspecified - *Chronic Elevated blood pressure reading without [...] - *Chronic Knee pain, right - *Chronic Chronic hepatitis c without mention [...] sites - *Chronic Tobacco Abuse - *Chronic CHRONIC PAIN SYNDROME - *Chronic CHRONIC PAIN SYNDROME - Chronic HPT C ACUTE WO HPAT COMA - [...] Dosage Effective Dates (start - stop) Status cyclobenzaprine 10 mg tablet 1 TABLET BY MOUTH THREE TIMES DAILY NEEDED - Active morphine ER 30 mg tablet,extended [...] take 2 BY MOUTH BID - Active [place] 10 mg-325 mg tablet take 1/2 to [...] Height Weight Pulse Rate Blood Pressure Temperature /16:27:00 67.00 in 179.00 lbs 82 /min 110/70 mm[Hg] Procedures Procedure Date Unknown Encounters Encounter Location Date Patient Visit [facility] Patient Visit [facility] Patient Visit [facility] Patient Visit [facility] Patient Visit [facility] Patient Visit [facility] Patient Visit [facility] Patient Visit [facility] Patient Visit [facility] Patient Visit [facility] Patient Visit [facility] Patient Visit [facility] Patient Visit [facility] Patient Visit [facility] Patient Visit [facility] Patient Visit [facility] Patient Visit [facility] Patient Visit [facility] Patient Visit [facility] Patient Visit [facility] Patient Visit [facility] Patient Visit [facility] Patient Visit [facility] Patient Visit [facility] Patient Visit [facility] Patient Visit [facility] Advance Directives Directive Effective Date Unknown
--- OUTSIDE RECORDS SUMMARY | 2016-05-06 10:22 | XMS REPORT | Referral Summary ---
Author Author [facility], Family Medicine Organization [facility] Address Unknown Phone Unavailable Care Team Providers Care Procurement Clerk Name Role Phone Koby Adame Primary Care Physician [phone] Encounter VC Date(s): 07/01/14 - 07/01/14 [facility], [address] [place] [address] Discharge Diagnosis: Chronic back pain Discharge Diagnosis: [...] 0 Refill(s) Start Date: 09/23/13 Status: Ordered [place] 10 mg-325 mg oral tablet 0.5-1 tabs, Oral, TID, as needed for pain, # 90 tabs, 0 Refill(s) Start Date: 11/26/14 Status: Ordered pravastatin 40 mg oral tablet 1 tabs, Oral, Daily, # 30 tabs, 6 Refill(s), Pharmacy: [facility] #[id number] , 1 tabs Oral Daily Start Date: 02/27/14 Status: Ordered PriLOSEC 40 mg oral delayed release capsule 40 mg 1 caps, Oral, Daily, # 30 caps, 6 Refill(s), Pharmacy: [facility] # [id number], 1 caps Oral Daily Start Date: 09/25/14 [...]
--- OUTSIDE RECORDS SUMMARY | 2016-05-06 10:22 | XMS REPORT | Referral Summary ---
Author Author [facility] Family Medicine Organization [facility] Address Unknown Phone Unavailable Care Team Providers Care Receiver Dispatcher Name Role Phone Koby Adame Primary Care Physician [phone] Encounter VC Date(s): 07/01/14 - 07/01/14 [facility], [address] [place] [address] Discharge Diagnosis: Chronic back pain Discharge Diagnosis: Chronic pain syndrome Discharge Diagnosis: High cholesterol Discharge Disposition: 01-Home or Self Care Attending Physician: Salvatore dAame MD Admitting Physician: Salvatore Adame MD Vital [...] 0 Refill(s) Start Date: 09/23/13 Status: Ordered [place] 10 mg-325 mg oral tablet 0.5-1 tabs, Oral, TID, as needed for pain, # 90 tabs, 0 Refill(s) Start Date: 11/26/14 Status: Ordered pravastatin 40 mg oral tablet 1 tabs, Oral, Daily, # 30 tabs, 6 Refill(s), Pharmacy: [facility] #[id number] , 1 tabs Oral Daily Start Date: 02/27/14 Status: Ordered PriLOSEC 40 mg oral delayed release capsule 40 mg 1 caps, Oral, Daily, # 30 caps, 6 Refill(s), Pharmacy: [facility] # [id number], 1 caps Oral Daily Start Date: 09/25/14 [...]
--- OUTSIDE RECORDS SUMMARY | 2016-05-06 10:22 | XMS REPORT | Referral Summary ---
Author Author [facility] Family Medicine Organization [facility] Address Unknown Phone Unavailable Care Team Providers Care Senior Health Educator Name Role Phone Koby Adame Primary Care Physician [phone] Encounter VC Date(s): 07/01/14 - 07/01/14 [facility], [address] [place] [address] Discharge Diagnosis: Chronic back pain Discharge Diagnosis: [...] 0 Refill(s) Start Date: 09/23/13 Status: Ordered [place] 10 mg-325 mg oral tablet 0.5-1 tabs, Oral, TID, as needed for pain, # 90 tabs, 0 Refill(s) Start Date: 11/26/14 Status: Ordered pravastatin 40 mg oral tablet 1 tabs, Oral, Daily, # 30 tabs, 6 Refill(s), Pharmacy: [facility] #[id number] , 1 tabs Oral Daily Start Date: 02/27/14 Status: Ordered PriLOSEC 40 mg oral delayed release capsule 40 mg 1 caps, Oral, Daily, # 30 caps, 6 Refill(s), Pharmacy: [facility] # [id number], 1 caps Oral Daily Start Date: 09/25/14 [...]
--- OUTSIDE RECORDS SUMMARY | 2016-05-06 10:22 | XMS REPORT | Continuity of Care Document ---
Author Author Tish Ross Organization [facility] Address [address] [place] [facility] [place] [address] Phone Care Team Providers Care Road Machine Runner Name Role Phone Salvatore Adame PP Unavailable Payers Payer name Insurance type Covered republican ID Authorization(s) Unknown Problems Condition Effective Dates (start - stop) Clinical Status CHRONIC PAIN SYNDROME - *Chronic Osteoarthrosis, unspecified whether generalized or localized, involving other specified sites - *Chronic Tobacco Abuse - *Chronic Elevated blood pressure [...] - *Acute CHRONIC PAIN SYNDROME - *Chronic CHRONIC PAIN [...] Dosage Effective Dates (start - stop) Status OxyContin 10 mg tablet,extended release take 1 tablet (10MG) by oral route every 12 hours 10 MG - No Longer Active Vitamin D3 1,000 unit tablet take 1 by Oral route every day 0 - Active multivitamin tablet take one daily - Active omeprazole 20 mg capsule,delayed release Take 1 capsule by mouth every day. - Active Metamucil 0.52 gram capsule take 2 BY MOUTH BID - Active [place] 10 mg-325 mg tablet take 1/2 to 1 tablet as needed for pain up to max of three tablets per day. May cause drowsiness. - Active morphine ER 30 mg tablet,extended release take 1 tablet (30MG) by oral route every 12 hours 30 MG - Active cyclobenzaprine 10 mg tablet 1 TABLET BY MOUTH THREE TIMES DAILY NEEDED - Active Immunizations Vaccine Date Status Comments [...] Height Weight Pulse Rate Blood Pressure Temperature /08:23:00 67.00 in 174.00 lbs 82 /min 120/78 mm[Hg] Procedures Procedure Date Unknown Encounters Encounter Location Date Patient Visit [facility] Patient Visit [facility] Patient Visit [facility] Patient Visit [facility] Patient Visit [facility] Patient Visit [facility] Patient Visit [facility] Patient Visit [facility] Patient Visit [facility] Patient Visit [facility] Patient Visit [facility] Patient Visit [facility] Patient Visit [facility] Patient Visit [facility] Patient Visit [facility] Patient Visit [facility] Patient Visit [facility] Patient Visit [facility] Patient Visit [facility] Patient Visit [facility] Patient Visit [facility] Patient Visit [facility] Patient Visit [facility] Patient Visit [facility] Patient Visit [facility] Advance Directives Directive Effective Date Unknown
--- OUTSIDE RECORDS SUMMARY | 2016-05-06 10:22 | XMS REPORT | Referral Summary ---
Author Author [facility] Organization [facility] Address Unknown Phone Unavailable Care Team Providers Care Installer Interior Assemblies Name Role Phone Koby Adame Primary Care Physician [phone] Encounter [facility] Date(s): 06/29/15 - 06/29/15 [facility] [address] [place] [email or web address] Discharge Diagnosis: Osteoarthritis Discharge Diagnosis: Hyperlipidemia, unspecified Discharge Diagnosis: Chronic back pain Discharge Diagnosis: Chronic pain syndrome Discharge Disposition: 01-Home or Self Care Attending Physician: Salvatore Adame MD Admitting Physician: Salvatore Adame MD Vital Signs Most recent to 1 oldest [Reference Range]: Temperature Tympanic 36.4 degC [36.6-38.1 degC] *LOW* (06/29/15 3:59 PM) Peripheral Pulse 86 bpm Rate [60-100 bpm] (06/29/15 3:59 PM) Blood Pressure 137/94 mmHg [90-140/60-90 mmHg] (06/29/15 3:59 PM) Problem List Condition Effective Dates Status Health Status Informant Acute hepatitis C < 09/23/13 Resolved without mention of hepatic coma(Confirmed) Absence of Active menstruation(Confirm ed) Asthma(Confirmed) Active Chronic back Active pain(Confirmed) Other chronic Active pain(Confirmed) Chronic pain Active syndrome (disorder)(Confirmed ) Depression(Confirmed Active ) GERD Active (gastroesophageal reflux disease)(Confirmed) Internal hemorrhoids 04/13/07 Active with other complication(Confirm ed) IBS (irritable bowel Active syndrome)(Confirmed) Migraine Active headache(Confirmed) Osteoarthritis(Confi Active rmed) Unspecified vitamin Active D deficiency(Confirmed ) Allergies, Adverse Reactions, Alerts Substance Reaction Severity Status codeine RASH Active Medications multivitamin Daily, TAKE ONE DAILY, 0 Refill(s) Start Date: 09/23/13 Status: Ordered [place] 10 mg-325 mg oral tablet 0.5-1 tabs, Oral, TID, as needed for pain, # 90 tabs, 0 Refill(s) Start Date: 06/22/15 Status: Ordered pravastatin 40 mg oral tablet See Instructions, TAKE ONE TABLET BY MOUTH DAILY, # 30 tabs, 5 Refill(s), eRx: [facility] #[id number], TAKE ONE TABLET BY MOUTH DAILY Start Date: 12/22/14 Status: Ordered PriLOSEC 40 mg oral delayed release capsule See Instructions, TAKE ONE CAPSULE BY MOUTH DAILY, # 30 caps, 5 Refill(s), eRx: [facility] #[id number], TAKE ONE CAPSULE BY MOUTH DAILY Start Date: 04/24/15 Status: Ordered Vitamin D3 1000 intl units [...] 2013 Assessment and Plan Extracted from: Title: Office Visit Note Author: Salvatore Adame MD Date: 06/29/15 Assessment/Plan Chronic back pain Chronic pain syndrome Hyperlipidemia, unspecified Ordered: Lipid Panel Osteoarthritis Overall chronic pain management is fair. Continue current medications. Follow-up again in 3 months regarding chronic pain management. We discussed hyperlipidemia and she is doing okay on pravastatin. She is due for repeat lipid testing and will plan that fasting another day. She is also due for comprehensive exam and will schedule that with her pain management follow-up visit in 3 months. Follow-up sooner as needed.
--- OUTSIDE RECORDS SUMMARY | 2016-05-06 10:22 | XMS REPORT | Referral Summary ---
Author Author [facility] Organization [facility] Address Unknown Phone Unavailable Care Team Providers Care Body Team Member Name Role Phone Koby Adame Primary Care Physician [phone] Encounter [facility] Date(s): 12/01/15 - 12/01/15 [facility], [address] [place] [id number] Discharge Diagnosis: Chronic back pain Discharge Diagnosis: Chronic pain syndrome Discharge Diagnosis: Back muscle spasm Discharge Disposition: 01-Home or Self Care Attending Physician: Salvatore Adame MD Admitting Physician: Salvatore Adame MD Vital Signs Most recent to 1 oldest [Reference Range]: Peripheral Pulse 81 bpm Rate [60-100 bpm] (12/01/15 10:57 AM) Blood Pressure 128/88 mmHg [90-140/60-90 mmHg] (12/01/15 10:57 AM) Problem List Condition Effective Dates Status Health Status Informant Acute hepatitis C < 09/23/13 Resolved without mention of hepatic coma(Confirmed) Absence of Active menstruation(Confirm ed) Asthma(Confirmed) Active Other chronic Active pain(Confirmed) Chronic pain Active syndrome (disorder)(Confirmed ) Depression(Confirmed Active ) GERD Active (gastroesophageal reflux disease)(Confirmed) Internal hemorrhoids 04/13/07 Active with other complication(Confirm ed) IBS (irritable bowel Active syndrome)(Confirmed) Migraine Active headache(Confirmed) Osteoarthritis(Confi Active rmed) Chronic back Active pain(Confirmed) Unspecified vitamin Active D deficiency(Confirmed ) Allergies, Adverse Reactions, Alerts Substance Reaction Severity Status codeine RASH Active Medications cyclobenzaprine 5 mg oral tablet 5 mg 1 tabs, Oral, TID, as needed for muscle spasm, Use sparingly, may cause drowsiness. 24 tablets should last at least 60 days., # 24 tabs, 0 Refill(s), Pharmacy: [facility] #[id number], 1 tabs Oral TID,PRN:as needed for muscle spasm,Instr:Use sp... Start Date: 12/01/15 Stop Date: 01/31/16 Status: Ordered Drisdol 50,000 intl units (1.25 mg) oral capsule 50,000 Intl_Units 1 caps, Oral, qWeek, # 8 caps, 0 Refill(s) Start Date: 10/27/15 Status: Ordered gabapentin 100 mg oral capsule See Instructions, 1 caps at bedtime for the first week, then 2 at bedtime for the second week, then 3 at bedtime., # 90 tabs, 0 Refill(s), Pharmacy: [facility] #[id number], 1 caps at bedtime for the first week, then 2 at bedtime for the second week,... Start Date: 10/20/15 Status: Ordered multivitamin Daily, TAKE ONE DAILY, 0 Refill(s) Start Date: 09/23/13 Status: Ordered [place] 10 mg-325 mg oral tablet 0.5-1 tabs, Oral, TID, as needed for pain, May be filled on or after 10/22/15. Should last 30 days., # 90 tabs, 0 Refill(s) Start Date: 11/20/15 Status: Ordered pravastatin 40 mg oral tablet See Instructions, TAKE ONE TABLET BY MOUTH DAILY, # 30 tabs, 5 Refill(s), eRx: [facility] #[id number], TAKE ONE TABLET BY MOUTH DAILY Start Date: 07/24/15 Status: Ordered PriLOSEC 40 mg oral delayed release capsule See Instructions, TAKE ONE CAPSULE BY MOUTH DAILY, # 30 caps, 5 Refill(s), Pharmacy: [facility] #[id number], TAKE ONE CAPSULE BY MOUTH DAILY Start Date: 10/20/15 Status: Ordered Vitamin D with Minerals oral tablet 1 tabs, Oral, Daily, Rx Vit D and takes once a week, # 30 tabs, 0 Refill(s) Start Date: 12/01/15 Status: Ordered Vitamin D3 1000 intl units oral tablet 1 tabs, Oral, Daily, # 30 tabs, 0 Refill(s) Start Date: 09/23/13 Status: Ordered Results No data available for this section Immunizations Vaccine Date Refusal Reason tetanus/diphth/pertuss (Tdap) adult/adol 10/20/15 tetanus/diphth/pertuss (Tdap) adult/adol 02/16/05 hepatitis A-hepatitis B vaccine 11/22/11 influenza virus vaccine, inactivated 10/20/15 influenza virus vaccine, inactivated 12/30/14 influenza virus [...] 2013 Assessment and Plan Extracted from: Title: OV Author: Salvatore Adame MD Date: 12/01/15 Impression and Plan Diagnosis Chronic back pain ([id number] M54.9, Discharge, Medical). Chronic pain syndrome (DSW11-CQ G89.4, Discharge, Medical). Back muscle spasm ([id number] M62.830, Discharge, Medical). Orders Orders (Selected) Outpatient Orders Canceled BD Bone Density DEXA Axial Skeleton: Prescriptions Prescribed cyclobenzaprine 5 mg oral tablet: 5 mg=1 tabs, Oral, TID, Use sparingly, may cause drowsiness. 24 tablets should last at least 60 days., PRN: as needed for muscle spasm, 24 tabs, 0 Refill(s).
--- OUTSIDE RECORDS SUMMARY | 2016-05-06 10:22 | XMS REPORT | Continuity of Care Document ---
Author Author Tish Ross Organization [facility] Address [address] [facility] [place] [address] Phone Care Team Providers Care Yeast Washer Name Role Phone Salvatore Adame PP Unavailable Payers Payer name Insurance type Covered libertarian ID Authorization(s) Unknown Problems Condition Effective Dates (start - stop) Clinical Status Tobacco Abuse - *Chronic CHRONIC PAIN SYNDROME - *Chronic Elevated blood pressure reading without [...] Dosage Effective Dates (start - stop) Status [place] 10 mg-325 mg tablet take 1/2 to 1 tablet as needed for pain up to max of three tablets per day. May cause drowsiness. - No Longer Active morphine ER 15 mg tablet,extended release take 1 tablet (15MG) by oral route every 12 hours 15 MG - No Longer Active Chantix Continuing Month Box 1 mg tablet take 1 tablet (1MG) by oral route 2 times every day with a glass of water after meals 1 MG - 2013 No Longer Active Chantix Starting Month [place] 0.5 mg (11)-1 mg (42) tablets in dose pack use as directed - No Longer Active Vitamin D3 1,000 unit tablet take 1 by Oral route every day 0 - Active multivitamin tablet take one daily - Active omeprazole 20 mg capsule,delayed release Take 1 capsule by mouth every day. - Active Metamucil 0.52 gram capsule take 2 BY MOUTH BID - Active [place] 10 mg-325 mg tablet take 1/2 to [...] Height Weight Pulse Rate Blood Pressure Temperature /15:48:00 67.00 in 175.00 lbs 96 /min 118/80 mm[Hg] 98.5 F Procedures Procedure Date Unknown Encounters Encounter Location Date Patient Visit [facility] Patient Visit [facility] Patient Visit [facility] Patient Visit [facility] Patient Visit [facility] Patient Visit [facility] Patient Visit [facility] Patient Visit [facility] Patient [facility] Patient Visit [facility] Patient [facility] Patient [facility] [place] Patient [facility] Patient Visit [facility] Patient Visit [facility] Patient Visit [facility] Patient Visit [facility] Advance Directives Directive Effective Date Unknown
--- OUTSIDE RECORDS SUMMARY | 2016-05-06 10:22 | XMS REPORT | Referral Summary ---
Author Author [facility] Organization [facility] Address Unknown Phone Unavailable Care Team Providers Care Well Surveying Engineer Name Role Phone Koby Adame Primary Care Physician [phone] Encounter [facility] Date(s): 09/25/14 - 09/25/14 [facility], [address] [place] [address] Discharge Diagnosis: Chronic pain syndrome Discharge Diagnosis: Chronic back pain Discharge Disposition: 01-Home or Self Care Attending Physician: Salvatore Adame MD Admitting Physician: Salvatore Adame MD Vital Signs Most recent to 1 oldest [Reference Range]: Temperature Tympanic 36.8 degC [36.6-38.1 degC] (09/25/14 4:18 PM) Blood Pressure 138/87 mmHg [90-140/60-90 mmHg] (09/25/14 4:18 PM) Problem List Condition Effective Dates Status [...] nighttime, # 60 tabs, 0 Refill(s), Pharmacy: [facility] #[id number], take 1-2 tabs at nighttime,PRN: as needed for spasm Start Date: 03/30/15 Stop Date: 04/28/15 Status: Ordered multivitamin Daily, TAKE ONE DAILY, 0 Refill(s) Start Date: 09/23/13 Status: Ordered [place] 10 mg-325 mg oral tablet See Instructions, as needed for pain, 0.5-1 tablet Q 4 hours to maximum of 5 tablets per 24 hours., # 105 tabs, 0 Refill(s) Start Date: 03/30/15 Status: Ordered pravastatin 40 mg oral tablet See Instructions, TAKE ONE TABLET BY MOUTH DAILY, # 30 tabs, 5 Refill(s), eRx: [facility] #[id number], TAKE ONE TABLET BY MOUTH DAILY Start Date: 12/22/14 Status: Ordered PriLOSEC 40 mg oral delayed release capsule 40 mg 1 caps, Oral, Daily, # 30 caps, 6 Refill(s), Pharmacy: [facility] # [id number], 1 caps Oral Daily Start Date: 09/25/14 [...] Visit Note Author: Salvatore Adame MD Date: 09/25/14 Assessment/Plan Chronic back pain Chronic pain syndrome Orders: HYDROcodone-acetaminophen, 0.5-1 tabs, Oral, TID, as needed for pain, # 90 tabs, 0 Refill(s) omeprazole, 40 mg 1 caps, Oral, Daily, # 30 caps, 6 Refill(s), Pharmacy: [facility] #[id number], 1 caps Oral Daily Overall she seems stable from a chronic pain management standpoint. Continue current medications-refill provided. She also needed a refill on her omeprazole today. Follow-up 3 months or sooner if needed.
--- OUTSIDE RECORDS SUMMARY | 2016-05-06 10:23 | XMS REPORT | Referral Summary ---
Author Author [facility] Organization [facility] Address Unknown Phone Unavailable Care Team Providers Care Lathe Sander Name Role Phone Koby Adame Primary Care Physician [phone] Encounter VC Date(s): 10/20/15 - 10/20/15 [facility], [address] [place] [id number]- Discharge Diagnosis: Barfield's esophagus Discharge Diagnosis: Tobacco use Discharge Diagnosis: GERD (gastroesophageal reflux disease) Discharge Diagnosis: Asthma Discharge Diagnosis: Hx of hepatitis C Discharge Diagnosis: Chronic back pain Discharge Diagnosis: Chronic pain syndrome Discharge Diagnosis: High cholesterol Discharge Disposition: 01-Home or Self Care Attending Physician: Salvatore Adame MD Admitting Physician: Salvatore Adame MD Vital Signs Most recent to 1 oldest [Reference Range]: Temperature Tympanic 36.5 degC [36.6-38.1 degC] *LOW* (10/20/15 11:25 AM) Peripheral Pulse 88 bpm Rate [60-100 bpm] (10/20/15 11:25 AM) Blood Pressure 115/77 mmHg [90-140/60-90 mmHg] (10/20/15 11:25 AM) Problem List Condition Effective Dates Status [...] Reaction Severity Status codeine RASH Active Medications gabapentin 100 mg oral capsule See Instructions, 1 caps at bedtime for the first week, then 2 at bedtime for the second week, then 3 at bedtime., # 90 tabs, 0 Refill(s), Pharmacy: [facility] #[id number], 1 caps at bedtime for the first week, then 2 at bedtime for the second week,... Start Date: 10/20/15 Status: Ordered multivitamin Daily, TAKE ONE DAILY, 0 Refill(s) Start Date: 09/23/13 Status: Ordered [place] 10 mg-325 mg oral tablet 0.5-1 tabs, Oral, TID, as needed for pain, May be filled on or after 10/22/15. Should last 30 days., # 90 tabs, 0 Refill(s) Start Date: 10/20/15 Status: Ordered pravastatin 40 mg oral tablet See Instructions, TAKE ONE TABLET BY MOUTH DAILY, # 30 tabs, 5 Refill(s), eRx: [facility] #[id number], TAKE ONE TABLET BY MOUTH DAILY Start Date: 07/24/15 Status: Ordered PriLOSEC 40 mg oral delayed release capsule See Instructions, TAKE ONE CAPSULE BY MOUTH DAILY, # 30 caps, 5 Refill(s), Pharmacy: [facility] #[id number], TAKE ONE CAPSULE BY MOUTH DAILY Start Date: 10/20/15 Status: Ordered Vitamin D3 1000 intl units oral tablet 1 tabs, Oral, Daily, # 30 tabs, 0 Refill(s) Start Date: 09/23/13 Status: Ordered Results Hematology Most recent to 1 oldest [Reference Range]: WBC [4.8-10.8 8.4 10*3/uL 10*3/uL] (10/20/15 1:45 PM) RBC [4.00-5.20] 4.51 (10/20/15 1:45 PM) Hgb [12.0-16.0 14.3 gm/dL gm/dL] (10/20/15 1:45 PM) Hct [37.0-47.0 %] 43.1 % (10/20/15 1:45 PM) MCV [82.0-99.0 fL] 95.6 fL (10/20/15 1:45 PM) MCH [27.0-32.0 pg] 31.7 pg (10/20/15 1:45 PM) MCHC [32.0-36.0 33.2 gm/dL gm/dL] (10/20/15 1:45 PM) RDW [11.5-14.5 %] 12.7 % (10/20/15 1:45 PM) Platelet [150-400 201 10*3/uL 10*3/uL] (10/20/15 1:45 PM) MPV [8.8-14.8 fL] 11.4 fL (10/20/15 1:45 PM) Immature 0.2 % Granulocytes (10/20/15 1:45 PM) [0.0-1.0 %] Neutrophils [51-75 55 % %] (10/20/15 1:45 PM) Lymphocytes [20-46 35 % %] (10/20/15 1:45 PM) Monocytes [4-11 %] 6 % (10/20/15 1:45 PM) Eosinophils [0-4 %] 4 % (10/20/15 1:45 PM) Basophils [0-2 %] 0 % (10/20/15 1:45 PM) Neutro Absolute 4.55 10*3 [1.90-7.00 10*3] (10/20/15 1:45 PM) Lymph Absolute 2.95 10*3 [0.80-3.30 10*3] (10/20/15 1:45 PM) Ripley Absolute 0.47 10*3 [0.30-1.00 10*3] (10/20/15 1:45 PM) Eos Absolute 0.33 10*3 [0.00-0.50 10*3] (10/20/15 1:45 PM) Baso Absolute 0.03 10*3 [0.00-0.20 10*3] (10/20/15 1:45 PM) Coagulation Most recent to 1 oldest [Reference Range]: PT Venous (10/20/15 1:45 PM) INR [0.8-1.2] 1.1 1 (10/20/15 1:45 PM) 1Result Comment: Normal (no anticoagulant): 0.8 - 1.2 Units Routine Therapeutic Range: 2.0 - 3.0 Units High Risk Therapeutic Range: 2.5 - 3.5 Units Immunizations Vaccine Date Refusal Reason tetanus/diphth/pertuss (Tdap) [...] Procedures Procedure Date Related Diagnosis Body Site Collection of venous blood by venipuncture 10/20/15 Colonoscopic polypectomy1 02/24/14 Esophagogastroduodenoscopy and biopsy2, 3 [...] 2013 Assessment and Plan Extracted from: Title: CDM-OV* Author: Salvatore Adame MD Date: 10/20/15 Patient: KRUPA VIERA Age: 59 years Sex: Female : 1955 Associated Diagnoses: Pap smear for cervical cancer screening; Screening for HPV (human papillomavirus); Vaginitis Author: Salvatore Adame MD Visit Information Visit type: Annual exam, Scheduled follow-up. Accompanied by: No one. Source of history: Self. History limitation: None. Chief Complaint 2015 11:25 CDT CPE History of Present Illness CRMMP female 59 year old woman here for complete review of multiple medical problems and comprehensive exam. Assessment & Plan: Vitamin D and liver panel levels to be done today. CBC and INR obtained to evaluate easy bruising. Will get records from spine doctor. Will give Flu and Tetanus vaccinations in office. Repeat bone density study ordered. We discussed chronic pain management. I'm reluctant to escalate narcotics due to potential adverse effects and safety concerns. Will try adding gabapentin 100 mg daily at bedtime for one week, then 200 mg daily at bedtime for one week , then 300 mg daily at bedtime. Reevaluate again after one more month. Acute concerns: Patient has been having a fishy vaginal odor for months. Denies any vaginal discharge. Current pain medications are no longer working for management. Therapy of [place] 10mg TID. Pain is relieved when patient is sitting immobile, and exacerbated with movement. Patient is limited due to pain, and states she has difficulty sleeping. Denies any side effects such as drowsiness or constipation. Lastly she notes having easy bruising on skin from minor injuries. This is been located only on her arms, and one place on her leg with an obvious trauma. No nosebleeds or gum bleeding. Chronic issues: CHRONIC BACK PAIN: Patient saw spine surgeon, per Dr. Shrestha's request, who suggested a back surgery consult. She understood that the surgeon recommended a fusion, patient currently refusing surgery because she is skeptical that this will really help much. Surgeon unknown, will attempt to get records. She reports she had some testing in August, and will request those old records. KNEE PAIN: Joint replacement R knee: Feb [address] Shrestha. She notes having complications with drainage from suture site with infection. Therapy of Abx for that. Additional difficulty with ambulation and range of motion that are minor, but overall worse than how knee was prior to surgery. VITAMIN D DEFICIENCY Taking Vitamin D supplement GERD: Therapy of omeprazole with well control and no complaints. She has history of hiatal hernia, and on EGD she was found to have Barfield's esophagus. Symptoms adequately controlled with current medication. HYPERLIPIDEMIA Lipids reviewed from: 07/02/15 On statin therapy- no myalgia or other side effects ASTHMA: Well controlled. No current therapy or symptoms such as wheezing. TOBACCO ABUSE: Had previously quit, but has now returned to 1/2 PPD since continues to smoke. Lastly quit using Chantix which worked well. Encouraged her to talk with her and hopefully the 2 of them can quit smoking together. We will be glad to help however we can with that. DEPRESSION: No current medication or concerns. IBS No current complaints. Had recent colonoscopy and EGD. MIGRAINES: No current concerns or recent returns HEP-C Had treatment [address] Tapia. No current follow up or treatment. ROS: Positive ROS addressed above. Remainder of complete/comprehensive ROS is negative. PFSH: Reviewed and updated as needed in EHR. EGD irregular GE junction, short segment of barretts esophagitis. CT 09/29/15 for follow up of lung nodule: stable repeat study in 6 months. Informed patient of results. Preventive care: PAP: 03/29/10 NORMAL; will repeat today Mammogram: 09/29/15 NEG DEXA: 04/01/09 RIGHT FEMORAL NECK T SCORE -1.50, LUMBAR SPINE T SCORE -0.60 , RIGHT TOTAL HIP T SCORE -0.90, RIGHT FEMORAL NECK T SCORE -1.50, LEFT TOTAL HIP T SCORE -0.90, LEFT FEMORAL NECK T SCORE-1.20 Colonoscopy: 02/24/14 REPEAT IN 5 YEARS TUBULAR ADENOMA X1 HYPERPLASTIC POLYP X1 FIRST DEGREE RELATIVE WITH COLON CANCER IMMUNIZATIONS Flu Vaccine: Will update today Pneumovax: 11/24/11 Prevnar 13: NA Zostavax: Discussed vaccination, patient to check on insurance coverage. Td/TDap: 02/16/05, will update today. PHYSICAL EXAM: Overall she appears in no acute distress. PERRLA. Red reflex normal bilaterally. Ear canals free of occlusion and TMs are clear. Nasal and oropharynx unremarkable. Neck supple without adenopathy, thyromegaly, or tracheal deviation. Lung sounds are clear. Heart regular rate and rhythm without murmur gallop or rub. Abdomen soft, nontender, without organomegaly. Extremities symmetrical without swelling. Negative SLR to 75 degrees. Peripheral pulses are 2+ over 4 in all extremities. Neurologic exam intact. Skin without suspicious lesions. Breasts symmetrical without masses, nipple discharge, or dimpling. No adenopathy. On pelvic exam, BUS and vaginal mucosa appear unremarkable. cervix appears unremarkable. Bimanual exam negative for pelvic or abdominal masses. Marked vaginal atrophy, no significant discharge. Papsmear hanging drop obtained. Health Status Allergies: Allergic Reactions (Selected) Severity Not Documented Codeine- Rash. Current medications: (Selected) Prescriptions Prescribed [place] 10 mg-325 mg oral tablet: 0.5-1 tabs, Oral, TID, PRN: as needed for pain, 90 tabs, 0 Refill(s) PriLOSEC 40 mg oral delayed release capsule: See Instructions, TAKE ONE CAPSULE BY MOUTH DAILY, 30 caps, 5 Refill(s) pravastatin 40 mg oral tablet: See Instructions, TAKE ONE TABLET BY MOUTH DAILY , 30 tabs, 5 Refill(s) Documented Medications Documented Vitamin D3 1000 intl units oral tablet: 1 tabs, Oral, Daily, 30 tabs multivitamin: Daily, TAKE ONE DAILY, No qualifying data available Problem list: Active Problems (12) Absence of menstruation Asthma Chronic back pain Chronic pain syndrome (disorder) Depression GERD (gastroesophageal reflux disease) IBS (irritable bowel syndrome) Internal hemorrhoids with other complication Migraine headache Osteoarthritis Other chronic pain Unspecified vitamin D deficiency Histories Family History: Asthma Father COPD Father CAD Brother Muscular dystrophy Brother Thyroid disease Mother Colon cancer Mother Grandmother (M) Heart disease Father Grandfather (M) MS Brother High blood pressure... Mother Hodgkin's lymphoma... Brother Skin cancer... Father Procedure history: Esophagogastroduodenoscopy and biopsy ([id number]) on 02/24/2014 at 58 Years. Comments: 03/04/2014 19:01 - Ayo Roberson MD 8-10 cm hiatal hernia, irregular GE junction. 03/04/2014 18:59 - Ayo Roberson MD Biopsies negative for Barfield's. His GERD refractory to medication return to clinic for further evaluation. Colonoscopic polypectomy ([id number]) on 02/24/2014 at 58 Years. Comments: 03/04/2014 19:01 - Ayo Roberson MD Tubular adenoma 1, hyperplastic polyp 1 first-degree relative with colon cancer, repeat in 5 years Removal of breast implants ([id number]) on 07/23/2007 at 51 Years. Colonoscopy ([id number]) on 04/13/2007 at 51 Years. BCC REMOVAL-NOSE ([id number]) in 2002 at 47 Years. Breast augmentation ([id number]) in 1996 at 41 Years. Physical Examination Vital Signs 2015 11:25 CDT Temperature Tympanic 36.5 degC LOW Peripheral Pulse Rate 88 bpm Systolic Blood Pressure 115 mmHg Diastolic Blood Pressure 77 mmHg Impression and Plan Diagnosis Pap smear for cervical cancer screening ([id number] Z12.4, Working, Medical). Screening for HPV (human papillomavirus) ([id number]-QY Z11.51, Working, Medical). Vaginitis ([id number] N76.0, Working, Medical). Orders Orders (Selected) Outpatient Orders Ordered HPV High Risk, Thin Prep: Ordered (Pending Collection) Hanging Drop: Completed Pathology Drupal Web Developer Cytology Order: Future (On Hold) CBC w/ Differential: DEXA Axial Skeleton, BD Bone Density: INR (PT): Vitamin D 25 Hydroxy Level: Prescriptions Prescribed [place] 10 mg-325 mg oral tablet: 0.5-1 tabs, Oral, TID, May be filled on or after 10/22/15. Should last 30 days., PRN: as needed for pain, 90 tabs, 0 Refill(s ) PriLOSEC 40 mg oral delayed release capsule: See Instructions, TAKE ONE CAPSULE BY MOUTH DAILY, 30 caps, 5 Refill(s) gabapentin 100 mg oral capsule: See Instructions, 1 caps at bedtime for the first week, then 2 at bedtime for the second week, then 3 at bedtime., 90 tabs, 0 Refill(s). Professional Services This note is prepared by Ginette Call, acting as medical editor for Dr. Salvatore Adame MD Date/Time: 2015 12:02 The documentation recorded by the scribe reflects the service I personally performed and the decisions made by me Addendum Additional diagnoses are noted on EMR. by Salvatore Adame MD on 2015 13:49 CDT
[2016-05-06] MEDS ORDERED: HYDR-4078 PO ×2 (10:34→15:26)
--- OUTSIDE RECORDS SUMMARY | 2016-05-06 10:44 | XMS REPORT | Continuity of Care Document ---
Author Author [facility] Organization [facility] Address Unknown Phone Unavailable Support Name Relationship Address Phone NIKA DE DIOS MD Caregiver [address] [place] [address] [place] [address] MILAGRO CLINE FACS, MD Caregiver [address] [place] [address] [place] [phone] LEXI TROY Next Of Kin [address] [place] [id number] Insurance Providers Payer Name Policy Number Subscriber Name Relationship [facility] [id number] Christianne Troy 19 Self Advance Directives Directive [...] F (96.8 - 99.1) Temperature (Calculated Celsius) 37.32269 degrees C (36.0 - 37.3) Temperature Source [...]
--- OUTSIDE RECORDS SUMMARY | 2016-05-06 10:44 | XMS REPORT | Continuity of Care Document ---
Author Author [facility] Organization [facility] Address Unknown Phone Unavailable Allergies Medications Problems Procedures Results Encounters ACCT No. Visit Date/Time Discharge Status Pt. Type Provider Facility Loc./Unit Complaint [id number] 04/11/2013 16:26:00 04/11/2013 23 :59:59 CLS Outpatient [id number] 03/26/2013 15:47:00 03/26/2013 23 :59:59 CLS Outpatient [id number] 03/14/2013 11:23:00 03/14/2013 23 :59:59 CLS Outpatient [id number] 03/07/2013 08:19:00 03/07/2013 23 :59:59 CLS Outpatient [id number] 02/19/2013 12:45:00 02/19/2013 23 :59:59 CLS Outpatient
--- NOTE | 2016-05-06 10:46 | NUR ---
XRAY PORTABLE XRAY AT BEDSIDE.
--- NOTE | 2016-05-06 11:01 | DI ---
Indication: ITS.REASON: injury PROCEDURE: HAND RIGHT 3 VIEW: Encounter: Initial Comparison: None Findings: There is a comminuted displaced fracture of the distal phalanx of the small finger which is partially amputated with an open skin defect. No additional acute fracture or dislocation seen. Impression: Open posttraumatic fracture of the small finger distal phalanx with partial amputation. .
--- NOTE | 2016-05-06 11:32 | NUR ---
PROVIDER DR. FALCON AT BEDSIDE FOR EXAM.
--- NOTE | 2016-05-06 11:40 | ERPDOC ---
Departure Disposition Decision Date: May 06, 2016 Disposition Decision Time: 12:15 Disposition: 02 TO [facility] Impression Impression Impression: Primary Impression: Traumatic amputation of fingertip Encounter type: initial encounter Qualified Codes: S68.129A - Partial traumatic metacarpophalangeal amputation of unspecified finger, initial encounter Severity: Moderate Condition: Improved Seen By: Physician only Referrals: NIKA DE DIOS MD (Family) Problems/Meds/Labs Reviewed?: Yes Medications reviewed and manag: Yes Follow up care ordered?: Yes Mental Status: Alert, Oriented Scripts Polyethylene Glycol 3350 (Miralax) 17 Gm Powd.pack 17 G PO DAILY Y for CONSTIPATION, #1 BOTTLE Take 17 Grams (1 capful), by mouth, once a day. Prov: DORCAS MENDOZA 05/06/16 Cephalexin (Keflex) 500 Mg Capsule 500 MG PO Q6H, #28 CAP Prov: DORCAS MENDOZA 05/06/16 Hydrocodone/Acetaminophen ([place] 10-325 Tablet) 10-325 Tablet 1-2 TAB PO Q4HPRN Y for PAIN, #60 TAB Prov: DORCAS MENDOZA 05/06/16 HPI - General Medical General Chief Complaint: Laceration Stated Complaint: LAC TO FINGER Time Seen by Provider: 10:30 Source: patient, family Exam Limitations: no limitations HPI - General Medical Initial Comments 60-year-old female presents the emergency department with a chief complaint of a traumatic laceration to the distal end of the right 5th finger. Patient was at work when she got finger caught between 2 tables and and a pinching motion the distal tip of the finger with severed. Patient notes a moderate discomfort which is sharp. No radiation. Pain increases with movement and direct palpation of the affected area. Patient was at work when her symptoms began. Symptoms have been persisted in nature since onset. Bleeding was stopped with direct pressure. Patient states that her last tetanus vaccine was one year ago. Patient denies any other injury. No other complaints or associated symptoms. Occurred At: work Onset: Constant Allergies: Coded Allergies: codeine (Unverified Allergy, Unknown, HIVES, 05/06/16) Past History Past Medical History Pt denies signifigant PMH Surgical History Denies Surgeries Family History Family History: Negative Vaccines Hx Influenza Vaccination: Yes (2014) Hx Pneumococcal Vaccination: Yes (years ago ) Social History Smoking Status: Current every day smoker # of Packs/Tins per Day: 1/2 # of Years: 32 Substance Use Type: does not use Alcohol Intake: none Review of Systems Constitutional Constitutional: DENIES: chills, fever Eyes General: DENIES: erythema, exudate, pain Lids/Accessories: DENIES: erythema, swelling Vision: DENIES: acuity, blurring ENMT Ears: DENIES: drainage, erythema, pain Hearing: DENIES: hearing loss Balance: DENIES: ataxia, falling to one side Sinuses: DENIES: congestion, pain Nose: DENIES: nosebleeds, pain Mouth/Throat: DENIES: painful swallowing, sore throat Teeth: DENIES: pain Jaw: DENIES: pain Cardiovascular Rhythm/Rate: DENIES: irregular beat, palpitations Vascular: DENIES: pedal edema, unilateral swelling Pulmonary Respiratory: DENIES: cough, dyspnea, pleuritic chest pain, sputum GI Upper Abdomen: DENIES: nausea, pain, vomiting Lower Abdomen: DENIES: diarrhea, pain General: DENIES: dysuria, pain Musculoskeletal General: pain, tenderness Integumentary Skin: DENIES: itching, rash Neurological General: DENIES: headache, numbness, weakness Psychiatric Psychiatric: DENIES: emotional instability, nervousness, suicidal ideation/ attempt Endocrine Endocrine: DENIES: polydipsia, polyphagia Hematologic/Lymphatic Hematologic/Lymphatic: DENIES: frequent nosebleeds, lymphadenopathy Allergic/Immunological Allergic/Immunoligical: DENIES: allergic reactions, hives Physical Exam General General Nourishment: well nourished, well developed, appears stated age, no acute distress, adult General Body Habitus: well groomed Vitals and Pain First Documented Vital Signs Date Time Temp Pulse Resp B/P Pulse Ox O2 Delivery O2 Flow Rate FiO2 05/06/16 10:16 97.7 120 22 140/98 100 Room Air Weight: Kilograms: 71.400 Height (feet): 5 Height (inches): 7.00 Triage Pain Scale: RN VS reviewed by Provider: Yes Normal Exams: Head: Normocephalic w/o trauma Eyes: Pupils are PERRLA w/ EOMI, No scleral icterus, irritation, or foreign bodies noted ENMT: No facial trauma, nasal exudates, pharyngeal erythema, or exudates are noted Dental: No fractured, loose, or missing teeth noted Neck: Full range of motion, without adenopathy, JVD, bruits or thyromegaly Chest/Resp: Clear all dwyer, with good airflow, and symmetry bilaterally CV: Regular rate and rhythm, without murmur or gallop, Pulses 2+ all extremities, capillary refill, <2 seconds all ext., no pedal edema noted Abdomen: Bowel sounds positive, soft, non-tender, non-distended, no hepatosplenomegaly, masses or bruits noted Lymphatic: No lymphadenopathy, or lymphedema noted Integumentary: No rashes, hives, or bruising noted, hair and nails, without abnormality Neurologic: Patient is alert, and oriented, cranial nerves, motor/sensory/ cerebellar, exams w/o gross deficits, to observation Psychiatric: Patient exhibits, appropriate attention, emotion and affect Musculoskeletal (brief) Comments RUE - traumatic amputation of the distal tip of the right 5th finger. No active bleeding. Amputation is from the proximal nail bed distally. Tender to palpation locally. Sensation intact. Pulses intact. Full range of motion. No foreign body. Clean. No obvious tendon involvement. No other tenderness in the right upper extremity. All other extremities are unremarkable. Differential Diagnoses Considering: Other (sprain/strain/fracture/amputation) Progress Results/Orders Orders Procedure Category Date Status Time Hand Right 3 View RAD 05/06/16 Resulted 10:40 Normal Saline (Normal PHA 05/06/16 Complete Saline Iv) 11:45 Morphine Sulfate PHA 05/06/16 Complete (Morphine) 11:45 Ondansetron Inj PHA 05/06/16 Complete (Zofran) 11:45 Ampicillin/Sulbactam PHA 05/06/16 Complete (Unasyn) 11:45 Medications Current ED Medications Sodium Chloride (Normal Saline IV) 1,000 ml @ 999 mls/hr Q1H1M ONCE IV Last administered on 05/06/16 11:53; Start 05/06/16 at 11:45; Stop 05/06/16 at 12:45 ; Status DC Morphine Sulfate (Morphine) 4 mg O ONCE IV Last administered on 05/06/16 11: 56; Start 05/06/16 at 11:45; Stop 05/06/16 at 11:46; Status DC Ondansetron HCl 4 mg 4 mg O ONCE IV Last administered on 05/06/16 11:54; Start 05/06/16 at 11:45; Stop 05/06/16 at 11:46; Status DC Ampicillin Sodium/ Sulbactam Sodium/ Sodium Chloride (Unasyn/NS) 100 ml @ 200 mls/hr Q6H IV Last administered on 05/06/16t 12:22; Start 05/06/16 at 11:45; Stop 05/06/16 at 12:33; Status DC Progress Progress Imaging is discussed in detail with the patient and family and questions are answered. Patient is given Unasyn 3 g intravenously times one. Patient develops mild redness at the site of infusion and the Unasyn is stopped. Clindamycin 900 mg IV times one is given at this time. Patient is given parental narcotic and antiemetic medications intravenously with improvement of symptoms. Patient is discussed with Dr. Scott of orthopedic surgery who presents to the emergency department and evaluates the patient. Patient's tetanus status is current. Patient will be taken to the operating room at the surgical center by Dr. Scott for further revision. Patient is in agreement with the current plan of management. Patient is admitted to the service of Dr. Scott in improved condition. No further orders from accepting physician who is in agreement with the current plan of management. Xray Xray : Xray: Hand R Interpretation: Abnormal (traumatic amputation consistent with open fracture of the distal right 5th finger.), Interpreted by Me, Reviewed Written Report SELVIN FALCON DO May 06, 2016 11:40
[2016-05-06] MEDS ORDERED: NORMAL SALINE 1,000 ML IV ONE (11:45)
[2016-05-06] MEDS ORDERED: ONDANSETRON 4mg/2ml INJECTION IV ONE (11:45)
[2016-05-06] MEDS ORDERED: MORPHINE SULFATE 4 MG SYRINGE IV ONE (11:45)
[2016-05-06] MEDS ORDERED: AMPICILLIN/SULBACTAM 3 G in NORMAL SALINE 100 ML IV SCH (11:45)
--- NOTE | 2016-05-06 12:10 | NUR ---
ORTHO DR. CABEZAS AND KENNETH TOSCANO AT BEDSIDE.
[2016-05-06] MEDS ORDERED: LR 1,000 ML IV SCH (12:28)
--- NOTE | 2016-05-06 12:28 | NUR ---
MED ADM PT C/O PAIN AT IV SITE AFTER STARTING THE AMPICILLIN WITH REDNESS NOTED. INFUSION STOPPED. DR. FALCON NOTIFIED.
--- OUTSIDE RECORDS SUMMARY | 2016-05-06 12:29 | XMS REPORT | Continuity of Care Document ---
Author Author [facility] Organization [facility] Address Unknown Phone Unavailable Support Name Relationship Address Phone NIKA DE DIOS MD Caregiver [address] [place] [address] [place] [address] MILAGRO CLINE FACS, MD Caregiver [address] [place] [address] [place] [phone] LEXI TROY Next Of Kin [address] [place] [phone] Insurance Providers Payer Name Policy Number Subscriber Name Relationship [facility] [id number] Christianne Troy 19 Self Advance Directives Directive [...] F (96.8 - 99.1) Temperature (Calculated Celsius) 37.85362 degrees C (36.0 - 37.3) Temperature Source [...]
--- OUTSIDE RECORDS SUMMARY | 2016-05-06 12:29 | XMS REPORT | Continuity of Care Document ---
Author Author [facility] Organization [facility] Address Unknown Phone Unavailable Allergies Medications Problems Procedures Results Encounters ACCT No. Visit Date/Time Discharge Status Pt. Type Provider Facility Loc./Unit Complaint [id number] 04/11/2013 16:26:00 04/11/2013 23 :59:59 CLS Outpatient [id number] 03/26/2013 15:47:00 03/26/2013 23 :59:59 CLS Outpatient [id number] 03/14/2013 11:23:00 03/14/2013 23 :59:59 CLS Outpatient [id number] 03/07/2013 08:19:00 03/07/2013 23 :59:59 CLS Outpatient [id number] 02/19/2013 12:45:00 02/19/2013 23 :59:59 CLS Outpatient
--- NOTE | 2016-05-06 12:41 | HPPDOC ---
Ortho HPI HPI Elements Location: FOUND fingers (Right 5th finger tip. ) Injury: Yes (Caught between 2 tables at work 05/06/16.) Pain: FOUND sharp Onset: Sudden Radiating: No Severity: FOUND severe Duration: FOUND 1-6 hours Previous Surgery: No Previous Injury: No Aggrevated by: FOUND all activity Treatments Tried: FOUND immobilization, FOUND pain medications X-ray Findings: FOUND other (traumatic amputation of the tip of the right 5th finger.) Recommendation: FOUND other (Plan I&D with closure of the rt 5th finger tip.) Past Medical History Adult Past Medical History Patient History: (1) Hyperlipemia (2) History of hepatitis C (3) GERD (gastroesophageal reflux disease) Surgical History Patient's Surgical History: Total knee replacement. Current Medications Hydrocodone/Acetaminophen ([place] 10-325 Tablet) 10-325 Tablet, 0.5 TAB PO TID, ( Reported) Last Taken: Unknown Dose on 05/06/16 0500 Omeprazole (Omeprazole) 40 Mg Capsule.dr, 40 MG PO HS, (Reported) Last Taken: Unknown Dose on 05/05/161999 Pravastatin Sodium (Pravastatin Sodium) 40 Mg Tablet, 40 MG PO HS, (Reported) Last Taken: Unknown Dose on 05/05/161999 Allergies Allergies: Coded Allergies: codeine (Unverified Allergy, Unknown, HIVES, 05/06/16) Vaccines years ago "LESS THAN ONE YEAR AGO" "LESS THAN ONE YEAR AGO" Social History Smoking Status: Current every day smoker # of Packs/Tins per Day: 1/2 # of Years: 32 Review of Systems Constitutional: DENIES: chills, fever, night sweats Cardiovascular DENIES: chest pain Rhythm/Rate: DENIES: palpitations Pulmonary Respiratory: DENIES: cough, dyspnea GI Upper Abdomen: heartburn/indigestion, DENIES: nausea, vomiting Lower Abdomen: DENIES: pain General: DENIES: burning, dysuria, pain Musculoskeletal General: see HPI Integumentary Skin: see HPI Neurological General: DENIES: numbness, tingling Physical Exam General General: well nourished, well developed, no acute distress Respiratory FOUND non-labored Cardiovascular Capillary Refill: other (Radial pulse intact. ) Musculoskeletal Comments Tip of right 5th finger is open with tip of the bone exposed upon exploration of the wound. Tip of the finger is missing and was sent on ice in a separate bag. Integumentary FOUND other (Remainder of the finger is intact and without injury.) Neurologic FOUND no deficits Psychiatric FOUND alert Assessment & Plan Problems: (1) Traumatic amputation of fingertip Status: Acute Qualifiers: Encounter type: initial encounter Qualified Codes: S68.129A - Partial traumatic metacarpophalangeal amputation of unspecified finger, initial encounter Assessment & Plan: Plan I&D of the finger tip with closure. Dr Scott has evaluated the pt and discussed her expected plan of care. Pt was strongly encouraged to stop smoking to prevent infections and promote healing. IV antibiotics given in ER. Tetanus is up to date. DORCAS MENDOZA May 06, 2016 12:35
[2016-05-06] MEDS ORDERED: CLINDAMYCIN 900mg in D5W 50ml IV ONE (12:45)
--- NOTE | 2016-05-06 12:49 | NUR ---
REPORT GIVEN TO SHARONA BOTTLED BEVERAGE INSPECTOR. DENIES QUESTIONS.
--- NOTE | 2016-05-06 13:01 | NUR ---
ADMIT PT TAKEN TO PRE-OP WAITING BY W/C PER LEONEL TABOR AT THIS TIME. REPORTS PAIN STILL 07/23. VS STABLE.
[2016-05-06 13:39] LABS: BASOPHILS % (AUTO) 0.3 % (0-2); EOSINOPHILS # (AUTO) 0.1 T/MM3 (0-0.5); EOSINOPHILS % (AUTO) 1.5 % (0-4); HCT - HEMATOCRIT 44.7 % (36-46); HGB - HEMOGLOBIN 14.5 GM/DL (12-16); IMMATURE GRANULOCYTE # (AUTO) 0.01 T/MM3 (0.00-0.03); IMMATURE GRANULOCYTE % (AUTO) 0.1 % (0.0-0.5); LYMPHOCYTES # (AUTO) 2.5 T/MM3 (1-4.8); LYMPHOCYTES % (AUTO) 27.6 % (23-45); MEAN CORPUSCULAR HGB 30.9 UUG (26-34); MEAN CORPUSCULAR HGB CONC(MCHC 32.4 GM/DL (31-37); MEAN CORPUSCULAR VOLUME 95.3 UM3 (80-100); MONOCYTES # (AUTO) 0.6 T/MM3 (0-0.8); MONOCYTES % (AUTO) 6.2 % (0-9.0); NEUTROPHILS #(AUTO)-ABSOLUTE 5.7 T/MM3 (1.8-7.7); NEUTROPHILS % (AUTO) 64.3 % (33-66); RED BLOOD COUNT 4.69 M/MM3 (4.00-5.20); WBC - WHITE BLOOD COUNT 8.9 T/MM3 (4.5-11.0)
[2016-05-06] MEDS ORDERED: LIDOCAINE 1% (10mg/ml) 2ml SDV INJ ONE (13:45)
[2016-05-06 13:47] LABS: POTASSIUM 4.3 MEQ/L (3.6-5)
[2016-05-06 13:48] LABS: ANION GAP 8 MEQ/L (5-15); BUN/CREATININE RATIO 14 RATIO (6-26); CALCIUM 9.4 MG/DL (8.4-10.2); CHLORIDE 107 MEQ/L (98-107); CO2 - CARBON DIOXIDE 28 MEQ/L (22-30); CREATININE 0.7 MG/DL (0.7-1.2); GLOMERULAR FILTRATION RATE 86; GLUCOSE 96 MG/DL (65-110); SODIUM 143 MEQ/L (134-144)
--- NOTE | 2016-05-06 14:12 | ANESPREOP ---
Anesthesia Record Date and Time DATE: 05/06/16 TIME: 14:07 Pre-Op Diagnosis Right small finger injury Proposed Surgical Procedure I&D of right small finger NPO since: 09 coffee/ 629 cereal bar Allergies: Coded Allergies: codeine (Unverified Allergy, Unknown, HIVES, 05/06/16) Ht/Wt/BMI Height: 5 ' 7.00 " Weight: 71.400 kg BMI: 24.7 kg/m2 Vital Signs Date Time Temp Pulse Resp B/P Pulse Ox O2 Delivery O2 Flow Rate FiO2 05/06/16 13:06 98.0 96 24 170/81 98 Room Air Medications Inpatient Medications Current Medications Medications (Trade) Dose Ordered Sig/Burt Start Time Stop Time Status Last Admin Dose Admin Ampicillin Sodium/ Sulbactam Sodium 3 g/Sodium Chloride 100 ml @ 200 mls/hr Q6H 05/06/16 11:45 05/06/16 12:33 DC 05/06/16 12:22 200 MLS/HR Lactated Ringer's (Lactated Ringers) 1,000 ml @ 50 mls/hr Q20H 05/06/16 12:28 05/06/16 13:32 50 MLS/HR Hydrocodone/Acetaminophen ([place] 10-325 Tablet) 10-325 Tablet, 0.5 TAB PO TID, ( Reported) Last Taken: on 05/06/16 0500 Omeprazole (Omeprazole) 40 Mg Capsule.dr, 40 MG PO HS, (Reported) Last Taken: on 05/05/161999 Pravastatin Sodium (Pravastatin Sodium) 40 Mg Tablet, 40 MG PO HS, (Reported) Last Taken: on 05/05/161999 Currently on Beta Blair: No Medical/Surgical History Anesthesia PMH: Reports: Arthritis (BILAT KNEES, LOWER BACK), Asthma (HX OF), Cancer (SKIN CA ON NOSE), Hepatitis (HX OF HEP C - TOOK TX 3 YEARS AGO), Hiatal Hernia ("A LARGE ONE"), Hyperlipidemia, Reflux, Denies: *Dyspnea, Anesthesia Reactions (no airway issues), COPD, Clotting Problems, Glaucoma, Malignant Hyperthermia, Pneumonia, , Renal Disease, Sleep Apnea, Tuberculosis Smoking Status: Current every day smoker Has pt. smoked today?: Yes # of Packs per Day: 1/2 # of Years: 32 Substance Use Type: prescription drug Substance last used: prior to arrival Alcohol Intake: none Past Surgical History Orthopedic Surgeries: Yes - R TKR Abdominal Surgeries: Genitourinary Surgeries: Cardiac Surgeries: Endocrine Surgeries: Reproductive Surgeries: Yes - TUBAL ; BREAST AUGMENTATION Neurological Surgeries: Ear Surgeries: Nose Surgeries: Throat Surgeries: Other Surgeries: Yes - colonoscopy , EGD Anesthesia Adverse Reactions: FOUND none Pertinent Findings Laboratory Tests 05/06/16 13:31 EKG Rhythm: Sinus Rhythm Physical Exam Respiratory: Lungs clear Cardiovascular: FOUND Regular rate, rhythm Airway Assessment Mallampati Score: II TMD: 3 Fingerbreadths Neck Extension: Fair Teeth: Upper Dentures (Patient refused to remove her upper partial.) Overall Assessment: May Be Diff Intubation ASA: 2 Plan Anesthesia Plan: GETA Discussion Discussed risks/options/alternatives of anesthesia and questions answered. Patient consents. Nursing pain assessment noted. Present: Family Member, Spouse Attestation Statement Prior to the delivery of any anesthetic medication, I examined the patient, developed the plan, obtained the patient's consent and discussed the risk and benefits of the procedure with the patient/guardian. FRANCHESKA SHETH BUSINESS ANALYTICS DIRECTOR May 06, 2016 14:11
[2016-05-06] MEDS ORDERED: BUPIVACAINE 0.25% (2.5mg/ml) INJ 30ml SDV ONE (14:26)
[2016-05-06] MEDS ORDERED: FENTANYL 100mcg/2ml INJECTION ONE (14:36)
[2016-05-06] MEDS ORDERED: ONDANSETRON 4mg/2ml INJECTION ONE (14:39)
[2016-05-06] MEDS ORDERED: DEXAMETHASONE 4mg/ml - 1ml INJECTION ONE (14:39)
[2016-05-06] MEDS ORDERED: POLY17PO6 PO (15:27)
[2016-05-06] MEDS ORDERED: CEPH-583 PO (15:27)
--- NOTE | 2016-05-06 15:28 | ANESPO ---
Post-Op Note Date 05/06/16 Time: 15:28 Status Pt Participated in Evaluation: Pt participated in person Vital Signs Date Time Temp Pulse Resp B/P Pulse Ox O2 Delivery O2 Flow Rate FiO2 05/06/16 13:06 98.0 96 24 170/81 98 Room Air Respiratory Function: Airway patent Cardiovascular Function: Regular pulse Telemetry Pattern: SR Mental Status: Alert/oriented Pain Level Intensity: 0 Hydration: IV infusing Complications during Recovery None apparent Follow-Up Instructions Instructions Per Surgeon FRANCHESKA SHETH CRNA May 06, 2016 15:28
[2016-05-06] MEDS ORDERED: HYDROMORPHONE 2mg/ml INJECTION IV PRN (15:30)
--- NOTE | 2016-05-07 11:43 | OPNOTEF ---
DATE OF OPERATION 05/06/2016 PREOPERATIVE DIAGNOSIS Right small fingertip amputation with open fracture of distal phalanx and tissue and nail loss. POSTOPERATIVE DIAGNOSIS Right small fingertip amputation with open fracture of distal phalanx and tissue and nail loss. PROCEDURES 1. Revision amputation right small finger with irrigation and debridement. 2. Right small finger digital nerve block. SURGEON Orion Scott MD [employer] STOCK CLERK Gerhard Germain PA-C ANESTHESIA General. FLUIDS Please refer to anesthesia chart. COMPLICATIONS None. CONDITION Stable to recovery room. INDICATIONS Ms. Troy is a 60-year-old female who was injured this morning at work when her small finger got trapped between two heavy tables. She had immediate onset of pain. She had loss of tissue including her nail on the dorsal skin over the distal fingertip. This was brought to the ER with her in an ice bag but was nonviable tissue. The patient was seen in the ER where she was given IV antibiotics. She had had a tetanus booster one year ago, so this was not indicated. We discussed the findings with the patient noting we would need to perform revision amputation. There was a comminuted fracture of the tuft of the distal phalanx with loss of bone as well. We discussed the risks, benefits, alternatives, and potential complications including necessity for additional surgery and/or shortening of the digit as well as the possibility of infection, possible nail remnant growth in a deformed fashion, and others. DESCRIPTION OF PROCEDURE Patient was identified in the preoperative holding area. The operative extremity was identified and appropriately marked. The risks, benefits, alternatives, and potential complications were discussed and informed consent was obtained. The patient was taken to the operating theatre, placed supine on the operating table. Appropriate cardiorespiratory monitors were applied. General anesthesia was administered. The right arm was placed on an arm board. The right upper extremity was sterilely prepped and draped in the usual fashion. Surgical time-out was performed, confirmed with myself, the director public, and circulating nurse. Preoperative antibiotics were given. The small finger was exsanguinated with a Enrique drain and clamped just distal to the MCP joint. Inspection of the wound at this time revealed this was a steep dorsal oblique laceration, essentially beginning just proximal to the appendicular fold removing the nail in its entirety and taking a small portion of the fingertip as well. This left the bulk of the volar pulp. There were comminuted bone fragments in this area as well. Initially we irrigated the wound with sterile saline. Following this these loose bone fragments were removed with forceps. This left an obliquely oriented fragment of the distal phalanx and tuft. A rongeurs was used to resect this back to a vertical surface maintaining the DIP joint. The periosteum on the underside of the distal phalanx was then elevated with a Adrian elevator to further free the distal pulp tissue. We then ascertained our flap noting that it was still quite bulky. We further mobilized it and removed some of the deep fatty tissue. Some of the skin at the tip was then sharply excised as was a small flap of nonviable tissue dorsally. The distal flap was then shaped and then pulled over the end of the bone. The volar flap was shaped and pulled dorsally over the bone assessing for shape and fit. It was felt to be under minimal tension. It was elected not to proceed with a V-to-Y advancement. The wound was then copiously irrigated again. Multiple interrupted sutures were then passed through the volar tissue dorsally along the entire laceration. The tourniquet was then released. There was noted to be some delay in capillary refill to the flap, but it was felt to be viable and would act appropriately as a biologic bandage. Note should be made that a small segment of the germinal matrix was still present from the injury, and this was sharply excised prior to closure. A digital nerve block was then applied placed using 4 mL of 0.25% Marcaine by injecting at the side of the metacarpal head. The hand was then cleansed. Sterile dressings were then applied including Xeroform over the laceration site. Multiple 4 x 4's with 4 x 4's stacked between all digits. Soft roll was then applied followed by an Celestine bandage, which incorporated an Alumafoam splint to protect the fingertip. The patient was then awakened from anesthesia and taken to the recovery room in stable and satisfactory condition. SANTOS
== END 2016-05-06 16:50 | disposition home or self-care (01) ==
LOC: ED 10:14 → SCU 12:18
PROVIDERS: ATTEND Orthopaedic Surgery
DX: S68.126A Partial traumatic metacarpophalangeal amputation of right little finger, initial encounter (principal); E78.5 Hyperlipidemia, unspecified; K21.9 Gastro-esophageal reflux disease without esophagitis; F17.210 Nicotine dependence, cigarettes, uncomplicated; Z79.899 Other long term (current) drug therapy; Z88.5 Allergy status to narcotic agent; Z86.19 Personal history of other infectious and parasitic diseases; Y99.0 Civilian activity done for income or pay; W23.1XXA Caught, crushed, jammed, or pinched between stationary objects, initial encounter
CPT/HCPCS: 26951; 36415; 73130; 80048; 85025; 96374; 96375; 99285; A6222; J0295; J1100; J2405; J3010; J7030; J7050; J7120